=== PATIENT | male | born 1960 | race Two or more races ===

== ENCOUNTER → 2019-11-22 13:14 | Outpatient (BNVA) | payer OTHER, SELFPAY | PROVIDERS: Visit Provider Internal Medicine Endocrinology, Diabetes & Metabolism | DX: E11.65 Type 2 diabetes mellitus with hyperglycemia (principal); E11.22 Type 2 diabetes mellitus with diabetic chronic kidney disease; I12.9 Hypertensive chronic kidney disease with stage 1 through stage 4 chronic kidney disease, or unspecified chronic kidney disease; N18.30 Chronic kidney disease, stage 3 unspecified; E11.40 Type 2 diabetes mellitus with diabetic neuropathy, unspecified; Z96.41 Presence of insulin pump (external) (internal); E04.2 Nontoxic multinodular goiter; E83.52 Hypercalcemia; E78.5 Hyperlipidemia, unspecified; E66.9 Obesity, unspecified; Z68.33 Body mass index [BMI] 33.0-33.9, adult | CPT/HCPCS: 82947; 99214 ==

== ENCOUNTER → 2020-03-03 12:33 | Outpatient (BNVA) | payer OTHER, SELFPAY | PROVIDERS: PCP Family Medicine Geriatric Medicine; Referring Provider Family Medicine Geriatric Medicine; Visit Provider Internal Medicine Endocrinology, Diabetes & Metabolism | DX: E11.65 Type 2 diabetes mellitus with hyperglycemia (principal); E11.22 Type 2 diabetes mellitus with diabetic chronic kidney disease; I12.9 Hypertensive chronic kidney disease with stage 1 through stage 4 chronic kidney disease, or unspecified chronic kidney disease; N18.30 Chronic kidney disease, stage 3 unspecified; E04.2 Nontoxic multinodular goiter; E83.52 Hypercalcemia; E78.5 Hyperlipidemia, unspecified; E66.9 Obesity, unspecified | CPT/HCPCS: 82947; 99212 ==

== ENCOUNTER 2020-03-06 09:16 | Outpatient (REF) | payer OTHER, SELFPAY ==
[2020-03-06 10:23] LABS: Alanine Aminotransferase 38 U/L (0-40); Albumin Level 4.4 g/dL (3.5-5.0); Alkaline Phosphatase 54 U/L (39-117); Anion Gap 11 (12-20); Aspartate Amino Transferase 39 U/L (5-37); Bilirubin Total 0.9 mg/dL (0.0-1.0); Blood Urea Nitrogen 13 mg/dL (9-16); Calcium 9.6 mg/dL (8.4-10.2); Carbon Dioxide 27 mmol/L (22-29); Chloride 106 mmol/L (96-108); Cholesterol 132 mg/dL; Estimated Glomerular Filt Rate 47; Glucose Fasting 80 mg/dL (60-99); HDL Cholesterol 36 mg/dL; LDL Cholesterol Calculated 77 mg/dl; Potassium 3.7 mmol/l (3.3-5.1); Sodium 140 mmol/L (135-145); Total Protein 7.6 g/dL (6.5-8.0); Triglycerides 97 mg/dL
[2020-03-06 10:53] LABS: Vitamin B12 346 pg/mL (200-900)
[2020-03-06 11:11] LABS: Creatinine Urine 172.19 mg/dL; Microalbum/Creatinine Ratio Ur 19.1 ug/mg cr
[2020-03-07 11:03] LABS: LDL Cholesterol Direct 85 mg/dL (<100)
[2020-03-09 14:02] LABS: Prot Elec - Albumin 4.4 g/dL (3.8-4.8); Prot Elec - Alpha1 0.3 g/dL (0.2-0.3); Prot Elec - Alpha2 0.5 g/dL (0.5-0.9); Prot Elec - Beta 1 0.5 g/dL (0.4-0.6); Prot Elec - Beta 2 0.5 g/dL (0.2-0.5); Prot Elec - Gamma 1.5 g/dL (0.8-1.7); Prot Elec - Total Protein 7.6 g/dL (6.1-8.1)
[2020-03-10 07:35] LABS: VITAMIN D (1,25 OH) D3 54
[2020-03-10 07:38] LABS: PTHI 39; Vit D (1,25-Dihydroxy) Total 54
[2020-03-10 10:22] LABS: Vitamin D (1,25 OH) D2 <8 pg/mL
[2020-03-10 15:32] LABS: PEU-Protein Creat Ratio Rand 0.082 (0.022-0.128); PEU-Rand. Prot/Creat Ratio 82 mg/g creat (22-128); PEU-Random Ur. Gamma Globulin 0 %; PEU-Random Urine A1 Globulin 0 %; PEU-Random Urine A2 Globulin 0 %; PEU-Random Urine Albumin 100 %; PEU-Random Urine Beta Globulin 0 %; PEU-Random Urine Creatinine 171 mg/dL (20-320); PEU-Random Urine Protein 14 mg/dL (5-25)
== END 2020-03-06 09:17 | disposition home or self-care (01) ==
LOC: HO.LAB 09:16
PROVIDERS: PCP Family Medicine; Visit Provider Internal Medicine Endocrinology, Diabetes & Metabolism
DX: E11.65 Type 2 diabetes mellitus with hyperglycemia (principal); E83.52 Hypercalcemia
CPT/HCPCS: 80053; 80061; 82043; 82570; 82607; 82652; 83519; 83721; 83970; 84155; 84156; 84165; 84166

== ENCOUNTER 2020-04-03 14:51 | Outpatient (REF) | payer OTHER, SELFPAY ==
[2020-04-03 15:53] LABS: Glucose Fasting 115 mg/dL (60-99)
[2020-04-04 07:57] LABS: C Peptide 0.42 ng/mL (0.80-3.85)
[2020-04-07 18:37] LABS: Parathyroid Hormone Related Pr 22 pg/mL (14-27)
[2020-04-07 22:12] LABS: Glutamic acid decarboxylase Ab <5 IU/mL (<5)
[2020-04-08 16:01] LABS: Insulinoma associated 2 aatb <5.4 U/mL (<5.4)
[2020-04-10 01:22] LABS: Islet Cell Antibody Screen NEGATIVE (NEGATIVE)
== END 2020-04-03 14:52 | disposition home or self-care (01) ==
LOC: HO.LAB 14:51
PROVIDERS: Visit Provider Internal Medicine Endocrinology, Diabetes & Metabolism
DX: E83.52 Hypercalcemia (principal); E11.65 Type 2 diabetes mellitus with hyperglycemia
CPT/HCPCS: 36415; 82947; 83519; 84681; 86255; 86341

== ENCOUNTER → 2020-06-04 13:56 | Outpatient (BNVA) | payer OTHER, SELFPAY | PROVIDERS: PCP Family Medicine; Visit Provider Internal Medicine Endocrinology, Diabetes & Metabolism | DX: E11.21 Type 2 diabetes mellitus with diabetic nephropathy (principal); E11.65 Type 2 diabetes mellitus with hyperglycemia; E11.40 Type 2 diabetes mellitus with diabetic neuropathy, unspecified; E11.22 Type 2 diabetes mellitus with diabetic chronic kidney disease; N18.30 Chronic kidney disease, stage 3 unspecified; E83.52 Hypercalcemia; I10 Essential (primary) hypertension; E78.5 Hyperlipidemia, unspecified; E04.2 Nontoxic multinodular goiter; Z79.4 Long term (current) use of insulin; Z79.82 Long term (current) use of aspirin; Z79.899 Other long term (current) drug therapy | CPT/HCPCS: 82947; 99212 ==

== ENCOUNTER → 2020-08-26 11:23 | Outpatient (BNVA) | payer OTHER, SELFPAY | PROVIDERS: Visit Provider Internal Medicine Endocrinology, Diabetes & Metabolism | DX: E11.65 Type 2 diabetes mellitus with hyperglycemia (principal); E11.22 Type 2 diabetes mellitus with diabetic chronic kidney disease; I12.9 Hypertensive chronic kidney disease with stage 1 through stage 4 chronic kidney disease, or unspecified chronic kidney disease; N18.30 Chronic kidney disease, stage 3 unspecified; E04.2 Nontoxic multinodular goiter; E83.52 Hypercalcemia; E78.5 Hyperlipidemia, unspecified; E66.9 Obesity, unspecified; Z79.4 Long term (current) use of insulin | CPT/HCPCS: 82947; 99212 ==

== ENCOUNTER → 2021-01-01 13:34 | Outpatient (BNVA) | payer OTHER, SELFPAY | PROVIDERS: Visit Provider Nurse Practitioner Gerontology | DX: E11.65 Type 2 diabetes mellitus with hyperglycemia (principal); E11.22 Type 2 diabetes mellitus with diabetic chronic kidney disease; I12.9 Hypertensive chronic kidney disease with stage 1 through stage 4 chronic kidney disease, or unspecified chronic kidney disease; N18.30 Chronic kidney disease, stage 3 unspecified; E78.5 Hyperlipidemia, unspecified; Z79.4 Long term (current) use of insulin | CPT/HCPCS: 82947; 83036; 99212 ==

== ENCOUNTER → 2021-01-29 13:44 | Outpatient (BNVA) | payer OTHER, SELFPAY | PROVIDERS: Visit Provider Registered Nurse Diabetes Educator | DX: E11.65 Type 2 diabetes mellitus with hyperglycemia (principal) | CPT/HCPCS: 99211 ==

== ENCOUNTER 2022-02-09 14:14 | Outpatient (REF) | payer OTHER, SELFPAY ==
[2022-02-09 16:45] LABS: Cholesterol 171 mg/dL; HDL Cholesterol 38 mg/dL; LDL Cholesterol Calculated 111 mg/dl; Triglycerides 111 mg/dL
[2022-02-09 16:50] LABS: Microalbum/Creatinine Ratio Ur 297.9 ug/mg cr
== END 2022-02-09 14:15 | disposition home or self-care (01) ==
LOC: HO.LAB 14:14
PROVIDERS: PCP Nurse Practitioner Family; Visit Provider Internal Medicine Endocrinology, Diabetes & Metabolism
DX: E11.65 Type 2 diabetes mellitus with hyperglycemia (principal)
CPT/HCPCS: 36415; 80061; 82043

== ENCOUNTER → 2022-02-10 13:55 | Outpatient (BNVA) | payer OTHER, SELFPAY | PROVIDERS: PCP Nurse Practitioner Family; Visit Provider Internal Medicine Endocrinology, Diabetes & Metabolism | DX: E11.65 Type 2 diabetes mellitus with hyperglycemia (principal); Z96.41 Presence of insulin pump (external) (internal); Z79.4 Long term (current) use of insulin | CPT/HCPCS: 82947; 83036; 99212 ==

== ENCOUNTER → 2022-02-11 14:34 | Outpatient (BNVA) | payer OTHER, SELFPAY | PROVIDERS: PCP Nurse Practitioner Family; Visit Provider Registered Nurse Diabetes Educator | DX: Z46.81 Encounter for fitting and adjustment of insulin pump (principal); E11.65 Type 2 diabetes mellitus with hyperglycemia; Z79.4 Long term (current) use of insulin | CPT/HCPCS: 99211 ==

== ENCOUNTER 2022-05-12 11:29 | Outpatient (REF) | payer OTHER, SELFPAY ==
[2022-05-12 13:59] LABS: Anion Gap 14 (12-20); Blood Urea Nitrogen 14 mg/dL (9-16); Carbon Dioxide 27 mmol/L (22-29); Chloride 104 mmol/L (96-108); Estimated Glomerular Filt Rate 44; Glucose Random 114 mg/dL (60-115); Potassium 4.2 mmol/L (3.3-5.1); Sodium 141 mmol/L (135-145)
== END 2022-05-12 11:30 | disposition home or self-care (01) ==
LOC: HO.LAB 11:29
PROVIDERS: Visit Provider Internal Medicine Endocrinology, Diabetes & Metabolism
DX: E11.65 Type 2 diabetes mellitus with hyperglycemia (principal)
CPT/HCPCS: 36415; 80048

== ENCOUNTER → 2022-07-08 15:28 | Outpatient (BNVA) | payer OTHER, SELFPAY | PROVIDERS: PCP Nurse Practitioner Family; Visit Provider Internal Medicine Endocrinology, Diabetes & Metabolism | DX: E11.65 Type 2 diabetes mellitus with hyperglycemia (principal); E11.22 Type 2 diabetes mellitus with diabetic chronic kidney disease; N18.30 Chronic kidney disease, stage 3 unspecified; Z96.41 Presence of insulin pump (external) (internal) | CPT/HCPCS: 82947; 83036; 99212 ==

== ENCOUNTER 2023-03-14 06:05 | Outpatient (REF) | payer OTHER, SELFPAY ==
[2023-03-14 07:51] LABS: Cholesterol 169 mg/dL (<200); HDL Cholesterol 39 mg/dL (>40); LDL Cholesterol Calculated 104 mg/dL (<100); Triglycerides 132 mg/dL (<150)
[2023-03-14 09:11] LABS: Creatinine Urine 182.83 mg/dL; Microalbum/Creatinine Ratio Ur 8.2 ug/mg cr (<30)
== END 2023-03-14 06:06 | disposition home or self-care (01) ==
LOC: HO.LAB 06:05
PROVIDERS: PCP Family Medicine; Visit Provider Internal Medicine Endocrinology, Diabetes & Metabolism
DX: E11.65 Type 2 diabetes mellitus with hyperglycemia (principal); E11.22 Type 2 diabetes mellitus with diabetic chronic kidney disease; I12.9 Hypertensive chronic kidney disease with stage 1 through stage 4 chronic kidney disease, or unspecified chronic kidney disease; N18.9 Chronic kidney disease, unspecified; E78.5 Hyperlipidemia, unspecified
CPT/HCPCS: 36415; 80061; 82043; 82570; 82947; 83036; 99212

== ENCOUNTER 2023-03-14 10:32 | Outpatient (AMB) | payer OTHER, SELFPAY ==
--- NOTE | 2023-03-14 10:32 | MHC.OFFVIS ---
Intake Vital Signs 03/14/23 10:37 Height 5 ft 11 in Weight 221 lb 5.506 oz BMI 30.9 BP 114/76 Blood Pressure Location Rt brachial Position Sitting Pulse 74 Pulse Source Pulse Oximeter Intake Visit Reasons: [id number] Intake Note: Patient present today to follow up on Type 2 Diabetes Mellitus. Patient receives DME supplies through: Pharmacy Last Diabetic Eye exam: approx 1 month ago Last Podiatry Visit: Does not see a Artist Suspect Random Glucose: 144 mg/dl HgA1C: 6.2% Wire Drawing Setter Required: No Accompanied by: Self / Same As Patient Allergies No Known Allergies Allergy (Verified 03/14/23 10:40) HPI HPI Comments History of Present Illness Details Patient is 62-year-old male with DM type 2 diagnosed around 2009 who presents for management of diabetes. Past medical history: DM2, CKD, Dyslipidemia, HTN, NTMG Micro and macrovascular complications: + nephropathy , CKD 3, + neuropathy, Diabetes medications: Mounjaro 5 mg weekly, Admelog via omnipod pump Pump settings His total daily insulin use is 39.5 units in 24 hour 79% basal 21% bolus Total daily carbohydrate intake is 135g. Total entries per day 1.8 Pump settings Basal rate 12A -8A =2 units/hr 8A- 12A =1.5 units/hr Carb ratio 1:1.5 Sensitivity 20 mg/dL Target 110 mg/dL Insulin active time 04:00 hours Blood glucose monitoring: In the past 2 weeks average blood glucose 166, CGM [id number]% . <1% very low, less than 0% low from 54-69. 60% within target range of 70-180. 38% high from 180-250. 2% very high over 250. Median above goal throughout most of the day. Tends to be slightly higher overnight. 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: Artist Suspect: denies Dental exam: goes twice year Ophthalmology evaluation: 1 mo ago , reports retinopathy in right eye currently had received anti VEGF therapy Laboratory Tests 03/06/20 03/06/20 03/06/20 09:36 09:36 09:36 Creatinine 1.52 H Estimated GFR 47 Fasting Glucose Hgb A1c (Clinic) C-Peptide LDL Cholesterol Di rect 85 LDL Cholesterol, C alc 77 Vitamin B12 346 Microalb/Creat Rat io HIEU Antibody 03/06/20 04/03/20 04/03/20 Unknown 15:23 15:23 Creatinine Estimated GFR Fasting Glucose 115 H D Hgb A1c (Clinic) C-Peptide 0.42 L LDL Cholesterol Di rect LDL Cholesterol, C alc Vitamin B12 Microalb/Creat Rat io 19.1 HIEU Antibody <5 08/26/20 11:40 Creatinine Estimated GFR Fasting Glucose Hgb A1c (Clinic) 7.1 H C-Peptide LDL Cholesterol Di rect LDL Cholesterol, C alc Vitamin B12 Microalb/Creat Rat io HIEU Antibody [facility] Medical History CKD (chronic kidney disease) stage 3, GFR 30-59 ml/min Diabetes type 2, uncontrolled Dyslipidemia Hypercalcemia 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 Absence of acromegalic features. Neck exam reveals nl size thyroid about 15 gms. No thyroid nodules palpable. No carotid bruits present. Lungs CTA. Heart S1 S2, Reg R/R. No M/R/ G. Skin exam reveals absence of vitiligo or acanthosis nigricans. Abdominal exam reveals Soft NT/ND with NA BS. No organomegaly present. Neck Other: . Extrem Other: Visual exam of foot performed. No ulcerations or open lesions. No onchomycosis, no callouses.Pulses 2 + distally Sensation intact to monofilament exam. Vibratory sensation sensed is decreased patient referred to the software educator with 128 Hz tuning fork Results AMB Hemoglobin A1c AMB Hemoglobin A1c 6.2 % Last Edit by NITESH Baron on 03/14/23 11:01 Results Reviewed Results Reviewed: Laboratory Last Values Glucose (Clinic) 144 mg/dL (60-115) H 03/14/23 10:46 Assessment & Plan Assessment & Plan (1) Diabetes type 2, uncontrolled: Code(s): E11.65 - Type 2 diabetes mellitus with hyperglycemia Plan: 61-year-old black male with history of type 2 diabetes being treated with Trulicity and Omnipod dash insulin pump with excellent improved glycemic control and known microvascular complications namely CKD stage 3B. Plan is increase the Mounjaro to 7.5 mg Q weekly. Told patient to be aware of any hypoglycemia and to report so we can adjust his pump. He will also follow up with the software educator Orders: Orders AMB Hemoglobin A1c Today E11.65 - Type 2 diabetes mellitus with hyperglycemia Medications: New tirzepatide (Mounjaro) 7.5 mg (0.5 mL) subcut QWEEK 2 mL 5RF Discontinued tirzepatide (Mounjaro) Discontinued Reason: Doctor's Order 5 mg (0.5 mL) subcut QWEEK 2 mL 5RF Coding Level of Care Code Est Pt Level 4 (14211) Diagnoses Diabetes type 2, uncontrolled E11.65
[2023-03-14 10:37] VITALS: BP 114/76; PULSE 74; BMI 30.9
[2023-03-14 10:51] LABS: Glucose, Whole Blood 144 mg/dL (60-115)
== END 2023-03-14 11:17 | disposition home or self-care (01) ==
PROVIDERS: PCP Nurse Practitioner Family; Visit Provider Internal Medicine Endocrinology, Diabetes & Metabolism
DX: E11.65 Type 2 diabetes mellitus with hyperglycemia (principal)
CPT/HCPCS: 99214

== ENCOUNTER 2023-03-15 11:09 | Outpatient (AMB) | payer OTHER, SELFPAY ==
--- NOTE | 2023-03-15 11:49 | MHC.AMDMED ---
Intake Intake Visit Reasons: Type 2 DM/ CONFIRMED Accompanied by: Self / Same As Patient Allergies No Known Allergies Allergy (Verified 03/14/23 10:40) HPI Comprehensive Diabetes Asmnt Most Recent Diabetes Results: Microalb/Creat Ratio 8.2 ug/mg cr (<30) 03/14/23 Cholesterol 169 mg/dL (<200) 03/14/23 HDL Cholesterol 39 mg/dL (>40) L 03/14/23 Triglycerides 132 mg/dL (<150) 03/14/23 Creatinine 1.60 mg/dL (0.5-1.4) H 05/12/22 Blood Urea Nitrogen 14 mg/dL (9-16) 05/12/22 Sodium 141 mmol/L (135-145) 05/12/22 Potassium 4.2 mmol/L (3.3-5.1) 05/12/22 Chloride 104 mmol/L (96-108) 05/12/22 Carbon Dioxide 27 mmol/L (22-29) 05/12/22 Calcium 10.0 mg/dL (8.4-10.2) 05/12/22 AST 39 U/L (5-37) H 03/06/20 ALT 38 U/L (0-40) 03/06/20 Total Protein 7.6 g/dL (6.5-8.0) 03/06/20 Albumin 4.4 g/dL (3.5-5.0) 03/06/20 [facility] Medical History CKD (chronic kidney disease) stage 3, GFR 30-59 ml/min Diabetes type 2, uncontrolled Dyslipidemia Hypercalcemia Hypertension 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 Non-toxic multinodular goiter Obesity (BMI 30-39.9) Surgical History History of appendectomy Hx of colonoscopy History of reversal of ileostomy Family History Father Diabetes Hypertension Mother Diabetes Hypertension Social History Household Members: Spouse Household Members Other:: Alcohol intake: never Patient Tobacco Use Status: Never used Tobacco Assessment & Plan Assessment & Plan (1) Diabetes type 2, uncontrolled: Code(s): E11.65 - Type 2 diabetes mellitus with hyperglycemia Plan: Patient presents for pump training for Omnipod 5, with Dexcom G6 The following topics were reviewed today: Patient received new PDM and programmed settings independently For his insulin to carb ratio he entered 1:5, which prompted insulin pump to continually give him warning about bolus over max bolus limits Reviewed patient's previous pump download June 2022, discuss discrepancy between insulin to carb ratio from old insulin pump download to current insulin to carb ratio Instructed patient on how to change insulin to carb ratio back to previous setting Setting verified by CDCES, see changes made to today's pump set Basal rate(s) (units/hour) : 12 AM to 12 AM? 2 units / hr Bolus setting Insulin Carbohydrate Ratio (s) 12 AM to 12 AM? 1: 1.5 New 12 AM? to 7 PM 1:6 7 PM to 12 AM 1:5 Correction Factor / Sensitivity Factor 12 AM? to 12 AM 1:20 Active Insulin Time:? 4 hours Target(s): 12 AM? to 12 AM 110 Threshhold for correction 110mg/dL Patient Instructions: Instructed patient to contact certified breastfeeding educator as needed Coding Level of Care Code Est Pt Level 1 (79625) Diagnoses Diabetes type 2, uncontrolled E11.65
== END 2023-03-15 11:53 | disposition home or self-care (01) ==
PROVIDERS: PCP Family Medicine; Visit Provider Registered Nurse Diabetes Educator
DX: E11.65 Type 2 diabetes mellitus with hyperglycemia (principal)

== ENCOUNTER → 2023-03-15 11:09 | Outpatient (BNVA) | payer OTHER, SELFPAY | PROVIDERS: PCP Family Medicine; Visit Provider Registered Nurse Diabetes Educator | DX: Z46.81 Encounter for fitting and adjustment of insulin pump (principal); E11.65 Type 2 diabetes mellitus with hyperglycemia | CPT/HCPCS: 99211 ==

== ENCOUNTER 2023-06-12 06:04 | Outpatient (REF) | payer OTHER, SELFPAY ==
[2023-06-12 07:55] LABS: Anion Gap 10 (12-20); Blood Urea Nitrogen 17 mg/dL (9-16); Calcium 9.6 mg/dL (8.4-10.2); Carbon Dioxide 27 mmol/L (22-29); Chloride 108 mmol/L (96-108); Estimated Glomerular Filt Rate 40; Glucose Random 163 mg/dL (60-115); Potassium 3.4 mmol/L (3.3-5.1); Sodium 142 mmol/L (135-145)
== END 2023-06-12 06:05 | disposition home or self-care (01) ==
LOC: HO.LAB 06:04
PROVIDERS: Visit Provider Internal Medicine Endocrinology, Diabetes & Metabolism
DX: E11.65 Type 2 diabetes mellitus with hyperglycemia (principal)
CPT/HCPCS: 36415; 80048

== ENCOUNTER 2023-06-13 11:04 | Outpatient (AMB) | payer OTHER, SELFPAY ==
[2023-06-13 11:13] VITALS: BP 130/86; PULSE 93; BMI 30.7
--- NOTE | 2023-06-13 11:13 | MHC.OFFVIS ---
Vital Signs 06/13/23 11:13 Height 5 ft 11 in Weight 220 lb BMI 30.7 BP 130/86 Blood Pressure Location Lt brachial Position Sitting Pulse 93 Pulse Source Pulse Oximeter Intake Visit Reasons: [id number] Intake Note: Patient present today to follow up on Type 2 Diabetes Mellitus. Patient receives DME supplies through: Pharmacy Last Diabetic Eye exam: 02/2023 Last Podiatry Visit: Doesn't have one Random Glucose: 150 mg/dl HgA1C: 6.0% Compounder Required: No Accompanied by: Self / Same As Patient Allergies No Known Allergies Allergy (Verified 06/13/23 11:19) HPI Comments Details: Patient is 62-year-old male with DM type 2 diagnosed around 2009 who presents for management of diabetes. Past medical history: DM2, CKD, Dyslipidemia, HTN, NTMG Micro and macrovascular complications: + nephropathy , CKD 3, + neuropathy, Diabetes medications: Mounjaro 7.5 mg weekly, Admelog via omnipod pump Pump settings His total daily insulin use is 25.8 units in 24 hour 68% basal 32% bolus Pump settings Basal rate(s) (units/hour) : 12 AM to 8 AM? 2 units / hr 8A to 12 A 1.5 units/hr Bolus setting Insulin Carbohydrate Ratio (s) 12 AM? to 5 PM 1:6 5 PM to 12 AM 1:5 Correction Factor / Sensitivity Factor 12 AM? to 12 AM 1:20 Active Insulin Time:? 4 hours Target(s): 12 AM? to 12 AM 110 Threshhold for correction 110mg/dL Blood glucose monitoring: In the past 2 weeks average blood glucose 161, CGM active 86% . <1% very low, less than 0% low from 54-69. 60% within target range of 70-180. 39% high from 180-250. 1% very high over 250. Median above goal throughout most of the day. 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: C T Tech: lalito Dental exam: goes twice year Ophthalmology evaluation: 02/2023 , reports retinopathy in right eye currently had received anti VEGF therapy Laboratory Tests 03/06/20 03/06/20 03/06/20 09:36 09:36 09:36 Creatinine 1.52 H Estimated GFR 47 Fasting Glucose Hgb A1c (Clinic) C-Peptide LDL Cholesterol Direct 85 LDL Cholesterol, Calc 77 Vitamin B12 346 Microalb/Creat Ratio HIEU Antibody 03/06/20 04/03/20 04/03/20 Unknown 15:23 15:23 Creatinine Estimated GFR Fasting Glucose 115 H D Hgb A1c (Clinic) C-Peptide 0.42 L LDL Cholesterol Direct LDL Cholesterol, Calc Vitamin B12 Microalb/Creat Ratio 19.1 HIEU Antibody <5 08/26/20 11:40 Creatinine Estimated GFR Fasting Glucose Hgb A1c (Clinic) 7.1 H C-Peptide LDL Cholesterol Direct LDL Cholesterol, Calc Vitamin B12 Microalb/Creat Ratio HIEU Antibody [facility] Medical History CKD (chronic kidney disease) stage 3, GFR 30-59 ml/min Diabetes type 2, uncontrolled Dyslipidemia Hypercalcemia 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 Absence of acromegalic features. Neck exam reveals nl size thyroid about 15 gms. No thyroid nodules palpable. No carotid bruits present. Lungs CTA. Heart S1 S2, Reg R/R. No M/R/ G. Skin exam reveals absence of vitiligo or acanthosis nigricans. Abdominal exam reveals Soft NT/ND with NA BS. No organomegaly present. Neck Other: . Extrem Other: Visual exam of foot performed. No ulcerations or open lesions. No onchomycosis, no callouses.Pulses 2 + distally Sensation intact to monofilament exam. Vibratory sensation sensed is decreased patient referred to the diabetes educator with 128 Hz tuning fork Results AMB Hemoglobin A1c AMB Hemoglobin A1c 6.0 % Last Edit by NITESH Castro on 06/13/23 11:45 Results Reviewed Results Reviewed: Laboratory Last Values Glucose (Clinic) 150 mg/dL (60-115) H 06/13/23 11:25 Assessment & Plan Assessment & Plan (1) Diabetes type 2, uncontrolled: Code(s): E11.65 - Type 2 diabetes mellitus with hyperglycemia Category: Medical Plan: 63-year-old black male with history of type 2 diabetes being treated with Mounjaro and Omnipod 5insulin pump with excellent improved excellent glycemic control and known microvascular complications namely CKD stage 3B. Plan is continue the current regimen He will also follow up with the diabetes educator. Coding Level of Care Code Est Pt Level 4 (34856) Diagnoses Diabetes type 2, uncontrolled E11.65
[2023-06-13 11:30] LABS: Glucose, Whole Blood 150 mg/dL (60-115)
== END 2023-06-13 11:47 | disposition home or self-care (01) ==
PROVIDERS: PCP Family Medicine; Visit Provider Internal Medicine Endocrinology, Diabetes & Metabolism
DX: Z13.9 Encounter for screening, unspecified (principal); E11.65 Type 2 diabetes mellitus with hyperglycemia
CPT/HCPCS: 99214

== ENCOUNTER → 2023-06-13 11:04 | Outpatient (BNVA) | payer OTHER, SELFPAY | PROVIDERS: PCP Family Medicine; Visit Provider Internal Medicine Endocrinology, Diabetes & Metabolism | DX: E11.65 Type 2 diabetes mellitus with hyperglycemia (principal); Z79.4 Long term (current) use of insulin | CPT/HCPCS: 82947; 83036; 99212 ==

== ENCOUNTER 2023-10-10 13:42 | Outpatient (AMB) | payer OTHER, SELFPAY ==
--- NOTE | 2023-10-10 13:46 | A.OFFVIS_ITS ---
Vital Signs 10/10/23 13:56 Height 5 ft 11 in Weight 218 lb 4.122 oz BMI 30.4 BP 120/84 Blood Pressure Location Rt brachial Position Sitting Pulse 85 Pulse Source Pulse Oximeter Intake Visit Reasons: T2DM/CONFIRMED Intake Note: Patient presents today to re-establish treatment for Type 2 Diabetes Mellitus: Last Diabetic eye exam was on: 02/2023 Last Podiatry exam was on: Does not see a Coating Machine Feeder Most recent HbA1c: 6.1%, 10/10/2023 Random Glucose- 119mg/dL, Today Work Counselor Required: No Accompanied by: Self / Same As Patient Allergies No Known Allergies Allergy (Verified 10/10/23 13:47) HPI Comments Details: 63 year old male with type 2 diabetes presents for management of diabetes. He was last seen by Dr. Victor 06/06. A1C in the office today is 6.1% Past medical history: DM2, CKD, Dyslipidemia, HTN, NTMG Micro and macrovascular complications: + nephropathy , CKD 3, + neuropathy, Diabetes medications: Mounjaro 7.5 mg weekly, Admelog via omnipod pump for approx 5 years. Basal rate(s) (units/hour) : 12 AM to 8 AM? 2 units / hr 8A to 12 A 1.5 units/hr Bolus setting Insulin Carbohydrate Ratio (s) 12 AM? to 5 PM 1:6 5 PM to 12 AM 1:5 Correction Factor / Sensitivity Factor 12 AM? to 12 AM 1:20 Active Insulin Time:? 4 hours Symptoms reported: + numbness, tingling, cramping in lower extremities on gabapentin Hypoglycemia: rare Hyperglycemia: denies urinary frequency, denies nocturia, denies polydypsia Sees nephrology regularly on pedro-i Taken off statin years ago liver related, on fenofibrate and zetia Biology Adjunct Instructor - CDE education: Has been seen in the past Coating Machine Feeder: denies Dental exam: goes twice year Ophthalmology evaluation: 04/2023, reports retinopathy in right eye currently had received anti VEGF therapy, last exam no changes Regular exercise. 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, 1 2 grandchildren [facility] Medical History Obesity (BMI 30-39.9) Hypertension Dyslipidemia Hypercalcemia Non-toxic multinodular goiter rn long term care (current) use of insulin CKD (chronic kidney disease) stage 3, GFR 30-59 ml/min Diabetes type 2, uncontrolled Surgical History History of appendectomy Hx of colonoscopy History of reversal of ileostomy Family History Father Diabetes Hypertension Mother Diabetes Hypertension Social History Household Members: Spouse Household Members Other:: Alcohol intake: never Patient Tobacco Use Status: Never used Tobacco Physical Exam Vital Signs: Last Vital Signs Pulse 85 10/10/23 13:56 BP 120/84 10/10/23 13:56 BMI result Body Mass Index 30.4 Const Other: Absence of Cushingoid features. Absence of acromegalic features. Neck exam reveals nl size thyroid about 15 gms. No thyroid nodules palpable. Heart S1 S2, Reg R/R. No M/R G. Skin exam reveals absence of vitiligo or acanthosis nigricans. Extrem Other: Visual exam of foot performed. No ulcerations or open lesions. No onchomycosis, no callouses. No inter digit fissuring or maceration. Sensation intact to monofilament exam. Vibratory sensation is normal with 128 Hz tuning fork. Results AMB Hemoglobin A1c AMB Hemoglobin A1c 6.1 % Last Edit by NITESH Smiley on 10/10/23 14:20 Results Reviewed Results Reviewed: Laboratory Last Values Glucose (Clinic) 119 mg/dL (60-115) H 10/10/23 14:05 Laboratory Tests 03/06/20 02/09/22 03/14/23 Unknown 14:40 06:25 Potassium Creatinine Estimated GFR Hgb A1c (Clinic) Calcium LDL Cholesterol, Calc 104 H HDL Cholesterol 39 L Urine Creatinine 182.83 Urine Microalbumin 33.0 698.0 15.0 Microalb/Creat Ratio 19.1 297.9 8.2 03/14/23 06/12/23 06/13/23 11:00 06:17 11:44 Potassium 3.4 Creatinine 1.72 H Estimated GFR 40 Hgb A1c (Clinic) 6.2 H 6.0 Calcium 9.6 LDL Cholesterol, Calc HDL Cholesterol Urine Creatinine Urine Microalbumin Microalb/Creat Ratio Assessment & Plan Assessment & Plan (1) Diabetes type 2, uncontrolled: Code(s): E11.65 - Type 2 diabetes mellitus with hyperglycemia Category: Medical Plan: Type 2 diabetic with nephropathy, neuropathy and retinopathy on Omnipod pump along with Manish presents today for follow-up. A1c 6.1% without lows. Bulk of today's visit was spent on patient education and pump survival skills. JONN was ordered to rule out peripheral vascular disease per where can Diabetes Association recommendations. Backup insulin plan 20 units of Lantus 3-4 units of short-acting with meals. Patient requests backup glucometer today. Orders: Orders AMB Hemoglobin A1c Today E11.65 - Type 2 diabetes mellitus with hyperglycemia US JONN complete Today E11.65 - Type 2 diabetes mellitus with hyperglycemia Medications: New lancets (FreeStyle Lancets) 4 times a day prn sensor failure or to confirm glucose 100 ea 1RF blood sugar diagnostic (FreeStyle Lite Strips) As directed prn sensor failure, confirm glucose 100 ea 1RF glucagon 3 mg/actuation (Baqsimi) 3 mg intranasal .prn 30 days PRN 2 ea 2RF Unresponsive hypoglycemia MDD 6 mg E11.65 - Type 2 diabetes mellitus with hyperglycemia acetone (urine) test (Ketone Urine Test strips) As directed glucose over 250, nausea, vomiting, illness 25 ea 1RF E11.65 - Type 2 diabetes mellitus with hyperglycemia insulin syringe-needle U-100 (BD Insulin Syringe Ultra-Fine) As directed up to quid for pump failure or glucose correction 100 ea 1RF E11.65 - Type 2 diabetes mellitus with hyperglycemia insulin glargine (Lantus U-100 Insulin) 20 units (0.2 mL) subcut DAILY 30 days PRN 10 mL 1RF Pump failure MDD 20 units E11.65 - Type 2 diabetes mellitus with hyperglycemia blood-glucose meter (FreeStyle [place] Lite kit) As directed 1 ea 1RF Changed From lancets (FreeStyle Lancets) 4 times a day 200 ea 6RF E11.65 - Type 2 diabetes mellitus with hyperglycemia To lancets (FreeStyle Lancets) 4 times a day prn sensor failure or to confirm glucose 100 ea 1RF E11.65 - Type 2 diabetes mellitus with hyperglycemia Refilled metoprolol succinate ER 100 mg PO DAILY 30 days 30 tabs 5RF I10 - Essential (primary) hypertension lisinopril 40 mg PO DAILY 30 days 30 tabs 5RF I10 - Essential (primary) hypertension Discontinued blood sugar diagnostic (FreeStyle Lite Strips) Discontinued Reason: Duplicate 4 times a day 200 ea 6RF E11.65 - Type 2 diabetes mellitus with hyperglycemia pravastatin Discontinued Reason: No Longer Medically Relevant 10 mg PO DAILY 90 days 90 tabs 1RF E78.5 - Hyperlipidemia, unspecified insulin lispro Discontinued Reason: Duplicate up to 100 units via pump subcut daily; no substitions 40 mL 6RF Patient Instructions: The patient was counseled to always carry a source of sugar and on the rule of 15's: Take 3 glucose tablets and repeat again in 15 minutes if blood sugar is not in normal range. Continue to repeat every 15 minutes until blood sugar is normal. Troubleshooting after starting new pod or inserting new insulin set: Occlusion, adhesive tape sensitivity, redness Check BG 2 hours after site change Safety information: Importance of a backup plan, for manual injections, proper prescriptions and emergency supplies ketone strips, and rules for testing for ketones Symptoms of DKA were reviewed: early: frequent urination, dry mouth, fatigue, feeling ill, severe symptoms: ketones in the urine, abdominal pain, nausea, vomiting and weakness. It is important to hydrate with sugar free liquids every 30 minutes and bring the sugars down to normal levels. The patient was counseled to achieve a target A1C of 7% (154 avg). Fasting blood sugars should be 90-130 in the morning and less than 180 two hours after meals. Reviewed the relationship between poor diabetic control and the developement of complications Coding Level of Care Code Est Pt Level 5 (39891) Complex EM visit Add On G2211 Diagnoses Diabetes type 2, uncontrolled E11.65 Time Spent (min) 60 Comment reviewing labs/provider notes, glucose sensor/pump reports, face to face, chart doc
[2023-10-10 13:56] VITALS: BP 120/84; PULSE 85; BMI 30.4
[2023-10-10 14:09] LABS: Glucose, Whole Blood 119 mg/dL (60-115)
== END 2023-10-10 14:59 | disposition home or self-care (01) ==
PROVIDERS: PCP Family Medicine; Visit Provider Nurse Practitioner Adult Health
DX: E11.65 Type 2 diabetes mellitus with hyperglycemia (principal)
CPT/HCPCS: 99215; 99417; G2211

== ENCOUNTER → 2023-10-10 13:42 | Outpatient (BNVA) | payer OTHER, SELFPAY | PROVIDERS: PCP Family Medicine; Visit Provider Nurse Practitioner Adult Health | DX: E11.65 Type 2 diabetes mellitus with hyperglycemia (principal); Z96.41 Presence of insulin pump (external) (internal); Z79.4 Long term (current) use of insulin | CPT/HCPCS: 82947; 83036; 99212 ==

== ENCOUNTER 2023-11-21 13:39 | Outpatient (REF) | payer OTHER, SELFPAY ==
--- NOTE | ~2023-11-21 | US_ITS ---
EXAMINATION: Noninvasive assessment of the bilateral lower extremities with ANKLE BRACHIAL INDICES (ABIs). CLINICAL INFORMATION: Type 2 diabetes mellitus with hyperglycemia TECHNIQUE: Ankle pulse volume recordings, ankle pressure measurements and ankle brachial indices were obtained of the lower extremity arterial system bilaterally. The study was performed only at rest. COMPARISON: None FINDINGS: BRACHIAL PRESSURES: Right: 132 Left: 135 ANKLE PRESSURES: Right: PT 157, DP 156 Left: PT 151, DP 154 ANKLE-BRACHIAL INDEX: Right: 1.16 Left: 1.14 ANKLE PVR WAVEFORMS: Right: Normal Left: Normal US/US JONN complete IMPRESSION: Normal ankle brachial indices of the bilateral lower extremities. JONN Reference: - >1.4 = calcified vessels - 0.9 - 1.4 = normal - no significant arterial disease - 0.7 - 0.89 = mild peripheral arterial disease - 0.51 - 0.69 = moderate peripheral arterial disease - d 0.50 = severe peripheral arterial disease - < .30 = critical arterial disease Electronically signed by: Mayra Lopez MD 11/21/2023 03:00 PM EDT
== END 2023-11-21 13:40 | disposition home or self-care (01) ==
LOC: HO.US 13:39
PROVIDERS: Visit Provider Nurse Practitioner Adult Health
DX: E11.65 Type 2 diabetes mellitus with hyperglycemia (principal)
CPT/HCPCS: 93923

== ENCOUNTER 2024-02-27 15:00 | Outpatient (AMB) | payer OTHER, SELFPAY ==
--- NOTE | 2024-02-27 14:29 | A.OFFVIS_ITS ---
Vital Signs 02/27/24 15:13 Height 5 ft 11 in Weight 218 lb BMI 30.4 BP 134/82 Blood Pressure Location Rt brachial Position Sitting Pulse 74 Pulse Source Pulse Oximeter Intake Visit Reasons: DM Intake Note: Patient presents today for a follow-up on Type 2 Diabetes Mellitus: Last Diabetic eye exam was on: 02/2023 Last Podiatry exam was on: Does not see a Deposit Clerk Most recent HbA1c: DUE, 02/27/2024 Random Glucose- 118 mg/dL, Today Powder Expert Required: No Accompanied by: Self / Same As Patient Allergies No Known Allergies Allergy (Verified 02/27/24 15:19) Medication List - Last Reconciled 02/29/24 by Poornima Redding NP acetone (urine) test (Ketone Urine Test strips) As directed glucose over 250, nausea, vomiting, illness amlodipine 5 mg PO DAILY 30 days blood sugar diagnostic (FreeStyle Lite Strips) As directed prn tid sensor failure, confirm glucose blood-glucose meter (FreeStyle [place] Lite kit) As directed colchicine 0.6 mg PO DAILY ezetimibe (Zetia) 10 mg PO DAILY 30 days febuxostat 40 mg PO DAILY fenofibrate nanocrystallized 48 mg PO DAILY gabapentin 300 mg PO TID gabapentin 800 mg PO QID glucagon 3 mg/actuation (Baqsimi) 3 mg intranasal .prn PRN 30 days MDD 6 mg insulin glargine (Lantus U-100 Insulin) 20 units (0.2 mL) subcut DAILY PRN 30 days MDD 20 units insulin lispro up to 100 units via insulin pump subcutaneously daily; insulin pump cart,auto,BT-cntr (Omnipod 5 G6 Intro Kit (Gen 5) subcutaneous cartridge with controller) As directed insulin pump cart,automated,BT (Omnipod 5 G6 Pods (Gen 5) subcutaneous cartridge) As directed- Please change pod every 48 hours insulin syringe-needle U-100 (BD Insulin Syringe Ultra-Fine) As directed up to qid for pump failure or glucose correction lancets (FreeStyle Lancets) 4 times a day prn sensor failure or to confirm glucose lancets (FreeStyle Lancets) 4 times a day prn sensor failure or to confirm glucose lisinopril 40 mg PO DAILY 30 days metoprolol succinate ER 100 mg PO DAILY 30 days ropinirole 0.25 mg PO testosterone 40.5 mg topical QAM tirzepatide (Mounjaro) 7.5 mg (0.5 mL) subcut QWEEK ubrogepant 50 mg PO HPI Comments Details: 63 year old male with type 2 diabetes presents for management of diabetes. HgbA1C 5.6% 02/27/24. He was last seen 10/10/23 with an A1C 6.1% Past medical history: DM2, CKD, Dyslipidemia, HTN, NTMG Micro and macrovascular complications: + nephropathy , CKD 3, + neuropathy, Diabetes medications: Mounjaro 7.5 mg weekly, Admelog via omnipod pump for approx 5 years. NO IN office A1C showed low hemoglobin. Patient was sent to lab. Hgb 13.7 Hct 38.4 Patient sent letter with results and advised to discuss with PCP Deneis any active bleeding or dark stools and reports he is uptodate with colonoscopy and no GI symptoms. Basal rate(s) (units/hour) : 12 AM to 8 AM? 2 units / hr 8A to 12 A 1.5 units/hr Bolus setting Insulin Carbohydrate Ratio (s) 12 AM? to 5 PM 1:6 5 PM to 12 AM 1:5 Correction Factor / Sensitivity Factor 12 AM? to 12 AM 1:20 Active Insulin Time:? 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 Regular exercise. 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, 1 2 grandchildren [facility] Medical History Obesity (BMI 30-39.9) Hypertension Dyslipidemia Hypercalcemia Non-toxic multinodular goiter senior living (current) use of insulin CKD (chronic kidney disease) stage 3, GFR 30-59 ml/min Diabetes type 2, uncontrolled Surgical History History of appendectomy Hx of colonoscopy History of reversal of ileostomy Family History Father Diabetes Hypertension Mother Diabetes Hypertension Social History Household Members: Spouse Household Members Other:: Alcohol intake: never Patient Tobacco Use Status: Never used Tobacco Physical Exam Vital Signs: Last Vital Signs Pulse 74 02/27/24 15:13 BP 134/82 02/27/24 15:13 BMI result Body Mass Index 30.4 Const Other: Absence of Cushingoid features. Absence of acromegalic features. Neck exam reveals nl size thyroid about 15 gms. No thyroid nodules palpable. Heart S1 S2, Reg R/R. No M/R G. Skin exam reveals absence of vitiligo or acanthosis nigricans. Visual exam of foot performed. No ulcerations or open lesions. No inter digit maceration or fissuring. No onychomycosis, no callouses. Sensation intact to monofilament exam. Vibratory sensation is normal with 128 Hz tuning fork. gd cap refill +pulses Results Reviewed Results Reviewed: Laboratory Last Values Glucose (Clinic) 118 mg/dL (60-115) H 02/27/24 15:40 Assessment & Plan Assessment & Plan (1) Diabetes type 2, uncontrolled: Code(s): E11.65 - Type 2 diabetes mellitus with hyperglycemia Category: Medical Plan: Type 2 diabetic with nephropathy, neuropathy and retinopathy on Omnipod pump along with Mounjaro presents today for follow-up. Well-controlled. A1c 02/27/2024 5.6% at lab. Office machine indicated low HGB. Patient was sent to lab. He has mild anemia and letter was sent to patient to f/u with PCP for this. He is asymptomatic and reports he is uptodate with colonscopy and denies GI symptoms Will increase Mounjaro per patient request. He was advised to watch for any low sugars which he currently denies and contact us if pup changes needed. He is on automode which should prevent any lows. The patient had an opportunity to ask questions regarding treatment plan. The patient expressed understanding and agreement with the above treatment plan. The patient is aware they should contact our office by phone for worsening glucose readings or for any low blood sugars which may warrant a change in diabetes medication. Compliance is encouraged with medications and any followup testing/consults which may have been ordered. Orders: Orders Hemoglobin A1c 02/27/24 - Type 2 diabetes mellitus with hyperglycemia Microalbumin, Random (w Creat) 02/27/24 - Type 2 diabetes mellitus with hyperglycemia Creatinine Urine 02/27/24 - Type 2 diabetes mellitus with hyperglycemia Comprehensive Met. Panel 02/27/24 - Type 2 diabetes mellitus with hyperglycemia Fructosamine 02/27/24 - Type 2 diabetes mellitus with hyperglycemia Complete Blood Count Auto Diff 02/27/24 - Type 2 diabetes mellitus with hyperglycemia Medications: New tirzepatide (Mounjaro) 10 mg (0.5 mL) subcut QWEEK 28 days 2 mL 11RF Discontinued tirzepatide (Mounjaro) Discontinued Reason: Doctor's Order 7.5 mg (0.5 mL) subcut QWEEK 2 mL 5RF Scribe Plan - Not visible on output: The patient was counseled to always carry a source of sugar and on the rule of 15's: Take 3 glucose tablets and repeat again in 15 minutes if blood sugar is not in normal range. Continue to repeat every 15 minutes until blood sugar is normal. Check your feet daily looking for any signs of infection, ulceration and seek medical attention if this occurs. Break in shoes gradually and do not wear open-toed shoes or walk barefooted. Symptoms of DKA (diabetic ketoacidosis): early: frequent urination, dry mouth, fatigue, feeling ill, severe symptoms: ketones in the urine, abdominal pain, nausea, vomiting and weakness. It is important to hydrate with sugar free liquids every 15-30 minutes and bring the sugars down to normal levels. If you are moderate or severe with ketones or unable to bring glucose to less than 200, go to the emergency room. Troubleshooting after starting new pod or inserting new insulin set: Occlusion, adhesive tape sensitivity, redness Check BG 2 hours after site change Safety information: Importance of a backup plan, for manual injections, proper prescriptions and emergency supplies ketone strips, and rules for testing for ketones Coding Level of Care Code Est Pt Level 5 (69481) Complex EM visit Add On G2211 Diagnoses Diabetes type 2, uncontrolled E11.65 Time Spent (min) 40 Comment TIME SPENT REVIEWING LABS/PROVIDER NOTES, GLUCOSE,SENSOR REPORTS, FACE TO FACE, CHART DOC
[2024-02-27 15:13] VITALS: BP 134/82; PULSE 74; BMI 30.4
[2024-02-27 15:48] LABS: Glucose, Whole Blood 118 mg/dL (60-115)
--- OUTSIDE RECORDS SUMMARY | 2024-02-27 17:32 | XMS_ITS ---
Author Name [facility] [place] [facility] [place] Address [address] [place] [id number] Support Name Relationship Address Phone POPPY PANCHAL Emergency Contact Unknown Unavaila ble Insurance Providers: All historical and current Section Date Range: From patient's date of to the date document was created. This section includes the names of all active insurance providers for the patient. Insurance Provider Type of Coverage Plan Name Start of Policy Coverage End of Policy Coverage Group Number Member ID Insurance Provider's Telephone Number Policy Bravo's Name Patient's Relationship to Policy Bravo MEDICAID MEDICAID [facility] Feb [facility], 2017 MEDICAI D [id number] Cleopatra PANCHAL PATIENT Selected Encounter This section includes the information on record at [place] for the Encounter. Date/Time Encounter Type Encounter Description Reason Pro vider Source Mar 15, 2023 12:00 AM Outpatient Encounter EVENT (HISTORICAL) IHE Encounter Template Text not used by VA Encounter Notes: All associated encounter notes This section contains the clinical notes associated to the Encounter. Date/Time Encounter Note(s) Provider Source Mar 15, 2023 12:00 AM NONVA DIAGNOSTIC S TUDY REPORT: LOCAL TITLE: NON-VA DIAGNOSTICS STANDARD TITLE: NONVA DIAGNOSTIC STUDY REPORT DATE OF NOTE: MAR 15, 2023 ENTRY DATE: MAR 22, 2023@11:44:43 AUTHOR: ROSEMARY ELLER EXP COSIGNER: URGENCY: STATUS: COMPLETED VistA Imaging - Scanned Document SCANNED DOCUMENT SIGNATURE NOT REQUIRED Electronically Filed: 03/22/2023 by: ROSEMARY HODGES [facility] Mar 15, 2023 12:00 AM NONVA DIAGNOSTIC S TUDY REPORT: LOCAL TITLE: NON-VA DIAGNOSTICS STANDARD TITLE: NONVA DIAGNOSTIC STUDY REPORT DATE OF NOTE: MAR 15, 2023 ENTRY DATE: MAR 22, 2023@11:47:52 AUTHOR: ROSEMARY ELLER EXP COSIGNER: URGENCY: STATUS: COMPLETED VistA Imaging - Scanned Document SCANNED DOCUMENT SIGNATURE NOT REQUIRED Electronically Filed: 03/22/2023 by: ROSEMARY HODGES [facility]
--- OUTSIDE RECORDS SUMMARY | 2024-02-27 17:32 | XMS_ITS ---
Author Name [facility] [place] [facility] [place] Address [address] [place] [id number] Support Name Relationship Address Phone POPPY PANCHAL [...] Patient's Relationship to Policy Bravo MEDICAID MEDICAID [facility] Feb 13, 2017 MEDICAI D [id number] Cleopatra PANCHAL PATIENT Selected Encounter This section includes the information on record at [place] for the Encounter. Date/Time Encounter Type Encounter Description Reason Pro vider Source Mar 14, 2023 12:00 PM Outpatient Encounter EVENT (HISTORICAL) IHE Encounter Template Text not used by VA Encounter Notes: All associated encounter notes This section contains the clinical notes associated to the Encounter. Date/Time Encounter Note(s) Provider Source Mar 14, 2023 12:00 PM NONVA NOTE: LOCAL TITLE: NON-VA OUTPATIENT NOTES STANDARD TITLE: NONVA NOTE DATE OF NOTE: MAR 14, 2023@12:00 ENTRY DATE: MAR 20, 2023@10:09:31 AUTHOR: VANESA BAINS EXP COSIGNER: URGENCY: STATUS: COMPLETED VistA Imaging - Scanned Document [facility]-OFFICE NOTES SCANNED DOCUMENT SIGNATURE NOT REQUIRED Electronically Filed: 03/20/2023 by: VANESA BAINS [employer]ES MARKETING VANESA BAINS [facility]
--- OUTSIDE RECORDS SUMMARY | 2024-02-27 17:32 | XMS_ITS ---
Author Name [facility] [place] Organization [facility] [place] Address [address] [place] [id number] Support Name Relationship Address Phone POPPY PANCHAL [...] Patient's Relationship to Policy Bravo MEDICAID MEDICAID [facility] Feb 13, 2017 MEDICAI D [id number] Cleopatra PANCHAL PATIENT Selected Encounter This section includes the information on record at [place] for the Encounter. Date/Time Encounter Type Encounter Description Reason Pro vider Source Nov 23, 2023 12:00 AM Outpatient Encounter EVENT (HISTORICAL) IHE Encounter Template Text not used by VA Encounter Notes: All associated encounter notes This section contains the clinical notes associated to the Encounter. Date/Time Encounter Note(s) Provider Source Nov 23, 2023 12:00 AM NONVA DIAGNOSTIC S TUDY REPORT: LOCAL TITLE: NON-VA DIAGNOSTICS STANDARD TITLE: NONVA DIAGNOSTIC STUDY REPORT DATE OF NOTE: NOV 23, 2023 ENTRY DATE: DEC 18, 2023@07:46:13 AUTHOR: ANA LAURA SAVAGE EXP COSIGNER: URGENCY: STATUS: COMPLETED VistA Imaging - Scanned Document SCANNED DOCUMENT SIGNATURE NOT REQUIRED Electronically Filed: 12/18/2023 by: ANA LAURA [facility] [place] [facility] Nov 23, 2023 12:00 AM NONVA DIAGNOSTIC S TUDY REPORT: LOCAL TITLE: NON-VA DIAGNOSTICS STANDARD TITLE: NONVA DIAGNOSTIC STUDY REPORT DATE OF NOTE: NOV 23, 2023 ENTRY DATE: DEC 18, 2023@07:47:13 AUTHOR: ANA LAURA SAVAGE COSIGNER: URGENCY: STATUS: COMPLETED VistA Imaging - Scanned Document SCANNED DOCUMENT SIGNATURE NOT REQUIRED Electronically Filed: 12/18/2023 by: ANA LAURA WATSON [facility]
== END 2024-02-27 16:23 | disposition home or self-care (01) ==
PROVIDERS: Visit Provider Nurse Practitioner Adult Health
DX: E11.65 Type 2 diabetes mellitus with hyperglycemia (principal)
CPT/HCPCS: 99215; G2211

== ENCOUNTER 2024-02-27 15:00 | Outpatient (REF) | payer OTHER, SELFPAY ==
[2024-02-27 17:01] LABS: Basophils Percent Auto 0.4 % (0-2); Eosinophils Absolute Auto 0.2 X10*3/uL (0.0-0.4); Eosinophils Percent Auto 2.5 % (0-4); Hematocrit 38.4 % (42.0-52.0); Hemoglobin 13.7 g/dl (14.0-18.0); Imm Gran Abs Auto 0.01 X10*3/uL (0.00-0.03); Imm Gran Pct Auto 0.1 % (0.0-0.4); Lymphocytes Absolute Auto 2.3 X10*3/uL (1.2-4.9); Lymphocytes Percent Auto 34.4 % (20-40); MANUAL DIFF FLAG NO; Mean Corpuscular HGB Conc 35.7 g/dl (31.0-36.0); Mean Platelet Volume 10.3 fL (9.4-12.4); Monocytes Absolute Auto 0.5 X10*3/uL (0.1-1.2); Monocytes Percent Auto 7.1 % (2-11); Neutrophils Absolute Auto 3.8 x10*3/uL (2.0-8.3); Neutrophils Percent Auto 55.5 % (45-73); Platelet Count 284 X10*3/uL (160-400); Red Blood Count 4.57 X10*6/uL (4.60-5.80); Red Cell Distribution Width 12.3 % (11.0-16.0); White Blood Count 6.8 X10*3/uL (4.8-10.8)
[2024-02-27 17:16] LABS: Estimated Average Glucose 114 mg/dL; Hemoglobin A1C 132.6046 umol/L; Hemoglobin A1c % 5.6 % (<6.0); Total Hemoglobin (HGBA1C) 3531.0427 umol/L
[2024-02-27 17:22] LABS: Creatinine Urine 267.46 mg/dL; Microalbum/Creatinine Ratio Ur 28.7 ug/mg cr (<30)
[2024-02-27 17:23] LABS: Alanine Aminotransferase 38 U/L (0-40); Albumin Level 4.3 g/dL (3.5-5.0); Alkaline Phosphatase 56 U/L (39-117); Anion Gap 6 (12-20); Aspartate Amino Transferase 36 U/L (5-37); Bilirubin Total 0.9 mg/dL (0.0-1.0); Blood Urea Nitrogen 12 mg/dL (9-16); Carbon Dioxide 29 mmol/L (22-29); Chloride 112 mmol/L (96-108); Estimated Glomerular Filt Rate 49; Glucose Random 100 mg/dL (60-115); Potassium 4.2 mmol/L (3.3-5.1); Sodium 143 mmol/L (135-145); Total Protein 7.6 g/dL (6.5-8.0)
--- OUTSIDE RECORDS SUMMARY | 2024-02-27 18:11 | XMS_ITS | Continuity of Care Document ---
Author Name [facility] Organization [facility] Care Team Providers Care Insurance Coder Name Role Phone [facility] Unavailable Unavailable Problems Combined list of problems from Department of Defense and Veterans Affairs facilities. It does not include entries that were removed or entered in error. Problem Status Onset Date Problem Type Date of Resolution Comments Source Chronic stress disorder Active Condition [facility] Encounters Combined list of: 1) Encounters from Department of Veterans Affairs facilities going back up to thelast 18 months. 2) Encounters from the Department of Defense facilities going back up to 280 months. Location Location Details Encounter Type Encounter Number Reason For Visit Attending Provider ADM Date DC Date Status Disposition Source [facility] Outpatient Encounter [id number] 03/14 [facility] Encounter [id number] 03/15 [facility] Out[facility] Encounter [id number] 11/22 [facility]
[2024-03-04 02:34] LABS: Fructosamine 296 umol/L (205-285)
== END 2024-02-27 15:01 | disposition home or self-care (01) ==
LOC: HO.LAB 15:00
PROVIDERS: PCP Internal Medicine; Visit Provider Nurse Practitioner Adult Health
DX: E11.65 Type 2 diabetes mellitus with hyperglycemia (principal); Z79.85 Long-term (current) use of injectable non-insulin antidiabetic drugs
CPT/HCPCS: 36415; 80053; 82043; 82570; 82947; 82985; 83036; 85025; 99212

== ENCOUNTER 2024-05-30 06:54 | Outpatient (REF) | payer OTHER, SELFPAY ==
--- OUTSIDE RECORDS SUMMARY | 2024-05-30 08:17 | XMS_ITS | Encounter Summary ---
Author Organization [facility], Address [address] [place] [address] Phone Care Team Providers Care Human Resources Officer Name Role Phone Milagros Roper FREIGHT SERVICE INSPECTOR Primary Care Provider [phone] Reason for Visit * Reason Comments Med Refill Encounter Details Date Type Department Care Team (Late st Contact Info) Description 09/19/2020 Refill [facility] [address] [place] [address] Cassius Mark MD [address] [place] [phone] Social History Tobacco Use Types Packs/Day Years [...] on filedocumented in this encounter Care Teams Human Resources Officer Relationship Specialty Start Date End Date Milagros Roper NP [phone] [place], [place] PCP - General Nurse Practitioner 03/21/19 documented as of this encounter
--- OUTSIDE RECORDS SUMMARY | 2024-05-30 08:18 | XMS_ITS | Encounter Summary ---
Author Organization [facility] Address [address] [place] [address] Care Team Providers Care Fulfillment Associate Name Role Phone Milagros Roper NP Primary Care Provider [phone] Encounter Details Date Type Department Care Team (Late st Contact Info) Description 05/23/2024 Lab Requisition [facility] - Main Lab 299 [facility] [place] [phone] Deniz Carbone PA [address] [place] [phone] Testicular hypofunction Social History Tobacco Use Types [...] AM EDT) WBC 9.6 4.8 - 10.8 K/[facility] LAB HEMETOLOGY METHOD 05/23/2024 1:19 PM [facility] RBC 4.80 4.50 - 5.50 M/mcL LAB HEMETOLOGY METHOD 05/23/2024 1:19 PM [facility] Hemoglobin 14.3 13.5 - 17.5 g/dL LAB HEMETOLOGY METHOD 05/23/2024 1:19 PM [facility] Hematocrit 41.6(L) 42.0 - 54.0 % LAB HEMETOLOGY METHOD 05/23/2024 1:19 PM [facility] MCV 86.1 79.0 - 98.0 FL LAB HEMETOLOGY METHOD 05/23/2024 1:19 PM [facility] MCH 29.6 27.0 - 32.0 pcg LAB HEMETOLOGY METHOD 05/23/2024 1:19 PM [facility] MCHC 34.4 32.0 - 37.0 g/dL LAB HEMETOLOGY METHOD 05/23/2024 1:19 PM [facility] RDW 12.6 11.0 - 15.0 % LAB HEMETOLOGY METHOD 05/23/2024 1:19 PM [facility] Platelets 328 130 - 400 K/mcL LAB HEMETOLOGY METHOD 05/23/2024 1:19 PM [facility] MPV 11.7(H) 7.0 - 11.0 FL LAB HEMETOLOGY METHOD 05/23/2024 1:19 PM [facility] NRBC 0.0 <1.0 % LAB HEMETOLOGY METHOD 05/23/2024 1:19 PM [facility] NRBC Absolute 0.00 <0.10 K/mcL LAB HEMETOLOGY METHOD 05/23/2024 1:19 PM [facility] Neutrophils Relative 63.2 % LAB HEMETOLOGY METHOD 05/23/2024 1:19 PM EDT [facility] Lymphocytes Relative 27.0 % LAB HEMETOLOGY METHOD 05/23/2024 1:19 PM [facility] Monocytes Relative 7.2 % LAB HEMETOLOGY METHOD 05/23/2024 1:19 PM [facility] Eosinophils Relative 2.0 % LAB HEMETOLOGY METHOD 05/23/2024 1:19 PM [facility] Basophils Relative 0.3 % LAB HEMETOLOGY METHOD 05/23/2024 1:19 PM [facility] Immature Granulocytes Relative 0.3 % LAB HEMETOLOGY METHOD 05/23/2024 1:19 PM [facility] Neutrophils Absolute 6.05 1.50 - 7.00 K/mcL LAB HEMETOLOGY METHOD 05/23/2024 1:19 PM [facility] Lymphocytes Absolute 2.58 1.00 - 5.00 K/mcL LAB HEMETOLOGY METHOD 05/23/2024 1:19 PM [facility] Monocytes Absolute 0.69 0.20 - 1.00 K/mcL LAB HEMETOLOGY METHOD 05/23/2024 1:19 PM [facility] Eosinophils Absolute 0.19 0.00 - 0.50 K/mcL LAB HEMETOLOGY METHOD 05/23/2024 1:19 PM [facility] Basophils Absolute 0.03 0.00 - 0.20 K/mcL LAB HEMETOLOGY METHOD 05/23/2024 1:19 PM [facility] Immature Granulocytes Absolute 0.03 0.00 - 0.03 K/mcL LAB HEMETOLOGY METHOD 05/23/2024 1:19 PM [facility] Blood Venous blood specimen / Unknown 05/23/2024 8:16 AM EDT 05/23/2024 12:40 PM EDT us Deniz SOTO LAB BLOOD ORDERABLES Final Result [facility] [address] [place] [address], documented in this encounter Visit Diagnoses Diagnosis Testicular hypofunction Other testicular hypofunction documented in this encounter Care Teams Fulfillment Associate Relationship Specialty Start Date End Date Milagros Roper NP [address] [place] [phone] PCP - General Internal Medicine 09/05/18 documented as of this encounter
--- OUTSIDE RECORDS SUMMARY | 2024-05-30 08:18 | XMS_ITS | Encounter Summary ---
Author Organization [facility], Address [address] [facility] [address] [place] [address] Phone Care Team Providers Care Rubber Tubing Backer Name Role Phone Milagros Roper SAMPLE CASE PORTER Primary Care Provider [phone] Reason for Visit * Reason Comments Med Refill Encounter Details Date Type Department Care Team (Late st Contact Info) Description 10/09/2019 Refill [facility] [address] [place] [phone] Cassius Mark MD [address] [place] [phone] Social History Tobacco Use Types Packs/Day Years [...] on filedocumented in this encounter Care Teams Rubber Tubing Backer Relationship Specialty Start Date End Date Milagros Roper NP [phone] [place], [place] PCP - General Nurse Practitioner 03/21/19 documented as of this encounter
--- OUTSIDE RECORDS SUMMARY | 2024-05-30 08:19 | XMS_ITS | Clinical Summary ---
Author Organization [facility] Address [address] [address] Phone Care Team Providers Care Manpower Development Specialist Name Role Phone Milagros Roper NP Primary Care Provider [phone] Encounters Date Type Department Care Team Description 05/23/2024 Lab Requisition [facility] - Main Lab [address] [facility] [address] Deniz Carbone PA Testicular hypofunction [...] LAB HEMETOLOGY METHOD 05/23/2024 1:[address] [facility] RBC 4.80 4.50 - 5.50 M/mcL LAB HEMETOLOGY METHOD 05/23/2024 1:[address] [facility] Hemoglobin 14.3 13.5 - 17.5 g/dL [...] LAB HEMETOLOGY METHOD 05/23/2024 1:[address] [facility] Basophils Relative 0.3 % LAB HEMETOLOGY METHOD 05/23/2024 1:[address] [facility] Immature Granulocytes Relative 0.3 % LAB HEMETOLOGY METHOD 05/23/2024 1:[address] [facility] Neutrophils Absolute 6.05 1.50 - 7.00 K/mcL LAB HEMETOLOGY METHOD 05/23/2024 1:[address] [facility] Lymphocytes Absolute 2.58 1.00 - 5.00 K/mcL LAB HEMETOLOGY METHOD 05/23/2024 1:[address] [facility] Monocytes Absolute 0.69 0.20 - 1.00 K/mcL LAB HEMETOLOGY METHOD 05/23/2024 1:[address] [facility] Eosinophils Absolute 0.19 0.00 - 0.50 K/mcL LAB HEMETOLOGY METHOD 05/23/2024 1:[address] [facility] Basophils Absolute 0.03 0.00 - 0.20 K/mcL LAB HEMETOLOGY METHOD 05/23/2024 1:[address] [facility] Immature Granulocytes Absolute 0.03 0.00 - 0.03 K/mcL LAB HEMETOLOGY METHOD 05/23/2024 1:[address] [facility] Blood Venous blood specimen / Unknown 05/23/2024 8:16 AM EDT 05/23/2024 12:40 PM EDT us Deniz SOTO LAB BLOOD ORDERABLES Final Result [facility] [address] [place] [address], from Last 3 Months Insurance [facility] PLAN Care Teams Manpower Development Specialist Relationship Specialty Start Date End Date Milagros Roper NP [address] [place] [id number] PCP - General Internal Medicine 09/05/18
--- OUTSIDE RECORDS SUMMARY | 2024-05-30 08:19 | XMS_ITS | Encounter Summary ---
Author Organization [facility], Address [address] [place] [address] Phone Care Team Providers Care Doughnut Dough Mixer Name Role Phone Milagros Roper FRAMING INSPECTOR Primary Care Provider [phone] Encounter Details Date Type Department Care Team (Late st Contact Info) Description 10/23/2023 Documentation Only [facility], [address] [place] [address] Leatha [place], [place] [address] [place] [address] Social History Tobacco Use Types [...] on filedocumented in this encounter Care Teams Doughnut Dough Mixer Relationship Specialty Start Date End Date Milagros Roper NP [phone] [place], [place] PCP - General Nurse Practitioner 03/21/19 documented as of this encounter
--- OUTSIDE RECORDS SUMMARY | 2024-05-30 08:19 | XMS_ITS | Clinical Summary ---
Author Organization [facility], Address [address] [place] [address] Phone Care Team Providers Care Neuropsychology Service Director Name Role Phone Milagros Roper NP Primary Care Provider [phone] Allergies No known active allergies Medications ASPIRIN [...] months` Diabetes mellitus 11/18/2014 Overview (03/21/2019): See [facility] Plate Cleaner; pt on insulin pump--Humolog via Omnipod and also on Trulicity 1.5 mg weekly Essential hypertension 11/18/2014 Overview (03/21/2019): [facility] Dr. Lanier 2015: patient monitor Echo 2015 normal Encounters Date Type Department Care Team Description 03/12/2024 Telephone [facility] [address] [place] [address] Leatha Edge [place] from Last 3 Months [...] PM EDT) Hemoglobin A1C 7.7(H) (4.0-5.6) % [facility] Comment: MONITORING: In known diabetic patients, hemoglobin A1c targets should be discussed with health care provider. DIAGNOSTIC USE: ??The [place] Diabetes Association (ADA) and the World Health [...] Supplement 1 Testing performed or reported by [facility], a Service of [facility], [address] [place] [address] Octaviano Mcrae MD, Economic Developer [facility]# [id number] Blood (Blood, Venous) 12/05/2020 1:57 PM EDT 12/05/2020 1:58 PM EDT Cassius Mark MD LAB BLOOD ORDERABLES Final Result [facility] from Last 3 Months or Most Recently Relevant to Health Maintenance Insurance Care Teams Neuropsychology Service Director Relationship Specialty Start Date End Date Milagros Roper NP [phone] [place], [place] PCP - General Nurse Practitioner 03/21/19
--- OUTSIDE RECORDS SUMMARY | 2024-05-30 08:19 | XMS_ITS | Encounter Summary ---
Author Organization [facility], Address [address] [place] [address] Phone Care Team Providers Care Turbine Room Attendant Name Role Phone Milagros Roper NP Primary Care Provider [phone] Encounter Details Date Type Department Care Team (Late st Contact Info) Description 06/02/2021 Documentation Only [facility], [address] [place] [address] Cassius Mark MD [address] [facility] [place] [phone] Social History Tobacco Use Types Packs/Day Years [...] on filedocumented in this encounter Care Teams Turbine Room Attendant Relationship Specialty Start Date End Date Milagros Roper NP [phone] [place], [place] PCP - General Nurse Practitioner 03/21/19 documented as of this encounter
--- OUTSIDE RECORDS SUMMARY | 2024-05-30 08:19 | XMS_ITS | Encounter Summary ---
Author Organization [facility], Address [address] [facility] [address] [place] [address] Phone Care Team Providers Care Aviation Operations Specialist Name Role Phone Milagros Roper WEB PUBLISHER Primary Care Provider [phone] Reason for Visit * Reason Comments Med Refill Encounter Details Date Type Department Care Team (Late st Contact Info) Description 11/03/2020 Refill [facility] [address] [place] [phone] Cassius Mark MD [address] [place] [phone] Social History Tobacco Use Types Packs/Day Years [...] on filedocumented in this encounter Care Teams Aviation Operations Specialist Relationship Specialty Start Date End Date Milagros Roper NP [phone] [place], [place] PCP - General Nurse Practitioner 03/21/19 documented as of this encounter
[2024-05-30 09:19] LABS: Cholesterol 132 mg/dL (<200); HDL Cholesterol 34 mg/dL (>40); LDL Cholesterol Calculated 68 mg/dL (<100); Triglycerides 151 mg/dL (<150)
== END 2024-05-30 06:55 | disposition home or self-care (01) ==
LOC: HO.LAB 06:54
PROVIDERS: PCP Internal Medicine; Visit Provider Nurse Practitioner Adult Health
DX: E11.65 Type 2 diabetes mellitus with hyperglycemia (principal)
CPT/HCPCS: 36415; 80061; 82947; 82985; 83036; 99212

== ENCOUNTER 2024-05-30 06:54 | Outpatient (AMB) | payer OTHER, SELFPAY ==
--- NOTE | 2024-05-30 05:37 | A.OFFVIS_ITS ---
Vital Signs 05/30/24 07:34 Height 5 ft 11 in BP 120/70 Blood Pressure Location Rt brachial Position Sitting Pulse 73 Pulse Source Pulse Oximeter Pulse Oximetry (%) 95 Oxygen Delivery Method Room Air Intake Visit Reasons: T2DM Intake Note: Patient presents today for a follow-up on Type 2 Diabetes Mellitus: Last Diabetic eye exam was on: 03/2024 Last Podiatry exam was on: Does not see a Forepart Reducer Most recent HbA1c: 5.4% Random Glucose- 137mg/dL, Today Accompanied by: Self / Same As Patient Allergies No Known Allergies Allergy (Verified 05/30/24 07:34) Medication List - Last Reconciled 05/30/24 by Poornima Redding NP acetone (urine) test (Ketone Urine Test strips) As directed glucose over 250, nausea, vomiting, illness amlodipine 5 mg PO DAILY 30 days blood sugar diagnostic (FreeStyle Lite Strips) As directed prn tid sensor failure, confirm glucose blood-glucose meter (FreeStyle [place] Lite kit) As directed colchicine 0.6 mg PO DAILY ezetimibe (Zetia) 10 mg PO DAILY 30 days febuxostat 40 mg PO DAILY fenofibrate nanocrystallized 48 mg PO DAILY glucagon 3 mg/actuation (Baqsimi) 3 mg intranasal .prn PRN 30 days MDD 6 mg insulin glargine (Lantus U-100 Insulin) 20 units (0.2 mL) subcut DAILY PRN 30 days MDD 20 units insulin lispro up to 100 units via insulin pump subcutaneously daily; insulin pump cart,auto,BT,G6/7 (Omnipod 5 G6-G7 Pods (Gen 5) subcutaneous cartridge) DIRECTED- PLEASE CHANGE POD EVERY 48 HOURS insulin pump cart,auto,BT-cntr (Omnipod 5 G6 Intro Kit (Gen 5) subcutaneous cartridge with controller) As directed insulin syringe-needle U-100 (BD Insulin Syringe Ultra-Fine) As directed up to qid for pump failure or glucose correction lancets (FreeStyle Lancets) 4 times a day prn sensor failure or to confirm glu cose lancets (FreeStyle Lancets) 4 times a day prn sensor failure or to confirm glucose lisinopril 40 mg PO DAILY 30 days metoprolol succinate ER 100 mg PO DAILY 30 days pregabalin (Lyrica) 150 mg PO DAILY ropinirole 0.25 mg PO testosterone 40.5 mg topical QAM tirzepatide (Mounjaro) 10 mg (0.5 mL) subcut QWEEK 28 days ubrogepant mg PO ubrogepant mg PO ubrogepant mg PO PRN HPI Comments Details: 64 year old male with type 2 diabetes presents for management of diabetes. HgbA1C 05/30/24 5.2%, previous 5.6% 02/27/24. Patient has anemia which may render A1c in accurate. Fructosamine 02/27/24 to 96 which is equivalent to an A1c is 7.3 % Micro and macrovascular complications: + nephropathy , CKD 3, + neuropathy, Diabetes medications: Mounjaro 7.5 mg weekly, Admelog via omnipod pump for approx 5 years. Lantus backup 20 units Hgb 13.7 Hct 38.4 Patient sent letter with results and advised to discuss with PCP Denies any active bleeding or dark stools and reports he is uptodate with colonoscopy within 5 years however PCP ordered one and he no GI symptoms with exception of difficulty swallowing. Has seen GI in the past and has had EGD which he reports as negative. Basal rate(s) (units/hour) : 12 AM to 12 AM? 2 units / hr Bolus setting Insulin Carbohydrate Ratio (s) 12 AM to 12 AM? 1: 1.5 12 AM? to 7 PM 1:6 7 PM to 12 AM 1:5 Correction Factor / Sensitivity Factor 12 AM? to 12 AM 1:20 Active Insulin Time:? 4 hours Target(s): 12 AM? to 12 AM 110 Threshhold for correction 110mg/dL Dexcom sensor average glucose: 6.9 14 day continuous glucose sensor report reviewed Glucose Management indicator 151 % TIme in ranges: 0 % very high (above 250) 24 % high (181-250) 76 % in range (70-180] 0 % low (69-55) 0 % very low (below 54) 18.5 Glucose variability (target <36%) Interpretation of CGMS [readings in target range 76% of the time slight increase this past 2 weeks after breakfast none the previous 2 weeks ] Has neuropathy: Symptoms reported: + numbness, tingling, in lower extremities better since changed to lyrica Has nephropathy Sees nephrology regularly on pedro-i sees neph 1-2 times per year 02/27/2024 eGFR 49 microalbumin 77 Hypoglycemia: rare Hyperglycemia: denies urinary frequency, denies nocturia, denies polydypsia Taken off statin years ago liver related, on fenofibrate and zetia no recent ldl 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 1: 1.5 12 AM? to 7 PM 1:6 7 PM to 12 AM 1:5 Correction Factor / Sensitivity Factor 12 AM? to 12 AM 1:20 Active Insulin Time:? 4 hours Target(s): 12 AM? 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 Absence of acromegalic features. Neck exam reveals nl size thyroid about 15 gms. No thyroid nodules palpable. Heart S1 S2, Reg R/R. No M/R G. Skin exam reveals absence of vitiligo or acanthosis nigricans. no edema Visual exam of foot performed. No ulcerations or open lesions. No inter digit maceration or fissuring. mild onychomycosis nail beds, no callouses. Sensation diminshed to monofilament exam. Vibratory sensation is normal with 128 Hz tuning fork. pulse positive small bunion left foot right foot hammer toe second toe, no pain. Results Reviewed Results Reviewed: Laboratory Last Values Glucose (Clinic) 137 mg/dL (60-115) H 05/30/24 07:43 Assessment & Plan Assessment & Plan (1) Diabetes type 2, uncontrolled: Code(s): E11.65 - Type 2 diabetes mellitus with hyperglycemia Category: Medical Plan: Type 2 diabetic with nephropathy, neuropathy and retinopathy on Omnipod pump along with Agustinunjaro presents today for follow-up. Due to anemia, A1c may be inaccurate. He will go to the lab today for fructosamine and lipid profile. Sensor download looks favorable. The patient had an opportunity to ask questions regarding treatment plan. The patient expressed understanding and agreement with the above treatment plan. The patient is aware they should contact our office by phone for worsening glucose readings or for any low blood sugars which may warrant a change in diabetes medication. Compliance is encouraged with medications and any followup testing/consults which may have been ordered. Orders: Orders Fructosamine Today E11.65 - Type 2 diabetes mellitus with hyperglycemia Lipid Panel Today E11.65 - Type 2 diabetes mellitus with hyperglycemia Patient Instructions: Take 15 carb carbohydrate grams to treat a low sugar (3-4 glucose tablets, half a glass of juice or 15 carbohydrate grams of soft candy such as gummie snacks). Recheck your sugar in 15 minutes and re-treat again with 15 carbohydrate grams if low or still with symptoms. Do not drive a car or operate machinery if you do not know what your blood sugar is, if it is low or in excess of 300. Troubleshooting after starting new pod or inserting new insulin set: Occlusion, adhesive tape sensitivity, redness Check BG 2 hours after site change Safety information: Importance of a backup plan, for manual injections, proper prescriptions and emergency supplies ketone strips, and rules for testing for ketones Symptoms of DKA (diabetic ketoacidosis): early: frequent urination, dry mouth, fatigue, feeling ill, severe symptoms: ketones in the urine, abdominal pain, nausea, vomiting and weakness. It is important to hydrate with sugar free liquids every 15-30 minutes and bring the sugars down to normal levels. If you are moderate or severe with ketones or unable to bring glucose to less than 200, go to the emergency room. Sick day management. Check your feet daily looking for any signs of infection, drainage, redness, ulceration and seek medical attention if this occurs. Break in shoes gradually and do not wear open-toed shoes or walk stocking footed or barefooted. Coding Level of Care Code Est Pt Level 4 (31602) Complex EM visit Add On G2211 Diagnoses Diabetes type 2, uncontrolled E11.65 Time Spent (min) 30 Comment Reviewing labs/provider notes, glucose sensor/pump reports, face to face, chart doc
--- OUTSIDE RECORDS SUMMARY | 2024-05-30 06:56 | XMS_ITS | Encounter Summary ---
Author Organization [facility], Address [address] [facility] [address] [place] [address] Phone Care Team Providers Care Oven Equipment Repairer Name Role Phone Milagros Roper POWER HAIR CLIPPER Primary Care Provider [phone] Reason for Visit * Reason Comments Med Refill Encounter Details Date Type Department Care Team (Late st Contact Info) Description 09/19/2020 Refill [facility] [address] [place] [address] Cassius Mark MD [address] [facility] [place] [phone] Social History Tobacco Use Types Packs/Day Years Used Date Smoking Tobacco: Never Alcohol Use Standard Drinks/Week Comments No 0 (1 standard drink = 0.6 oz pur e alcohol) Sex and Gender Information Value Date Recorded Sex Assigned at Not on file Legal Sex Male 4:36 PM EST Gender Identity Not on file Sexual Orientation Not on file documented as of this encounter Plan of Treatment Not on file documented as of this encounter Visit Diagnoses Not on filedocumented in this encounter Care Teams Oven Equipment Repairer Relationship Specialty Start Date End Date Milagros Roper NP 0515-4482 [place], [place] PCP - General Nurse Practitioner 03/21/19 documented as of this encounter
--- OUTSIDE RECORDS SUMMARY | 2024-05-30 06:56 | XMS_ITS | Encounter Summary ---
Author Organization [facility] Address [address] [place] [address] Care Team Providers Care Curb Worker Name Role Phone Milagros Roper NP Primary Care Provider Encounter Details Date Type Department Care Team (Late st Contact Info) Description 05/23/2024 Lab Requisition [facility] [address] [facility] [place] [phone] Deniz Carbone PA [address] [facility] [address] [place] [phone] Testicular hypofunction Social History Tobacco Use Types Packs/Day Years Used Date Smoking Tobacco: Never Smokeless Tobacco: Never Alcohol Use Standard Drinks/Week Comments No 0 (1 standard drink = 0.6 oz pur e alcohol) Sex and Gender Information Value Date Recorded Sex Assigned at Not on file Legal Sex Male 4:05 PM EST Gender Identity Not on file Sexual Orientation Not on file documented as of this encounter Plan of Treatment Not on file documented as of this encounter Procedures Procedure Name Priority Date/Time Associated Diagnosis Comments CBC WITH AUTO DIFFERENTIAL Routine 05/23/2024 8:16 AM EDT Testicular hypofunction CBC AND DIFFERENTIAL Routine 05/23/2024 8:16 AM EDT Testicular hypofunction documented in this encounter Results * (ABNORMAL) CBC auto differential (05/23/2024 8:16 AM EDT) WBC 9.6 4.8 - 10.8 K/[facility] LAB HEMETOLOGY METHOD 05/23/2024 1:19 PM [facility] RBC 4.80 4.50 - 5.50 M/mcL LAB HEMETOLOGY METHOD 05/23/2024 1:19 PM [facility] Hemoglobin 14.3 13.5 - 17.5 g/dL LAB HEMETOLOGY METHOD 05/23/2024 1:19 PM [facility] Hematocrit 41.6(L) 42.0 - 54.0 % LAB HEMETOLOGY METHOD 05/23/2024 1:19 PM [facility] MCV 86.1 79.0 - 98.0 FL LAB HEMETOLOGY METHOD 05/23/2024 1:19 PM [facility] MCH 29.6 27.0 - 32.0 pcg LAB HEMETOLOGY METHOD 05/23/2024 1:19 PM [facility] MCHC 34.4 32.0 - 37.0 g/dL LAB HEMETOLOGY METHOD 05/23/2024 1:19 PM [facility] RDW 12.6 11.0 - 15.0 % LAB HEMETOLOGY METHOD 05/23/2024 1:19 PM [facility] Platelets 328 130 - 400 K/mcL LAB HEMETOLOGY METHOD 05/23/2024 1:19 PM [facility] MPV 11.7(H) 7.0 - 11.0 FL LAB HEMETOLOGY METHOD 05/23/2024 1:19 PM [facility] NRBC 0.0 <1.0 % LAB HEMETOLOGY METHOD 05/23/2024 1:19 PM [facility] NRBC Absolute 0.00 <0.10 K/mcL LAB HEMETOLOGY METHOD 05/23/2024 1:19 PM [facility] Neutrophils Relative 63.2 % LAB HEMETOLOGY METHOD 05/23/2024 1:19 PM EDT [facility] Lymphocytes Relative 27.0 % LAB HEMETOLOGY METHOD 05/23/2024 1:19 PM [facility] Monocytes Relative 7.2 % LAB HEMETOLOGY METHOD 05/23/2024 1:19 PM [facility] Eosinophils Relative 2.0 % LAB HEMETOLOGY METHOD 05/23/2024 1:19 PM [facility] Basophils Relative 0.3 % LAB HEMETOLOGY METHOD 05/23/2024 1:19 PM [facility] Immature Granulocytes Relative 0.3 % LAB HEMETOLOGY METHOD 05/23/2024 1:19 PM [facility] Neutrophils Absolute 6.05 1.50 - 7.00 K/mcL LAB HEMETOLOGY METHOD 05/23/2024 1:19 PM [facility] Lymphocytes Absolute 2.58 1.00 - 5.00 K/mcL LAB HEMETOLOGY METHOD 05/23/2024 1:19 PM [facility] Monocytes Absolute 0.69 0.20 - 1.00 K/mcL LAB HEMETOLOGY METHOD 05/23/2024 1:19 PM [facility] Eosinophils Absolute 0.19 0.00 - 0.50 K/mcL LAB HEMETOLOGY METHOD 05/23/2024 1:19 PM [facility] Basophils Absolute 0.03 0.00 - 0.20 K/mcL LAB HEMETOLOGY METHOD 05/23/2024 1:19 PM [facility] Immature Granulocytes Absolute 0.03 0.00 - 0.03 K/mcL LAB HEMETOLOGY METHOD 05/23/2024 1:19 PM [facility] Blood Venous blood specimen / Unknown 05/23/2024 8:16 AM EDT 05/23/2024 12:40 PM EDT us Deniz SOTO LAB BLOOD ORDERABLES Final Result [facility] [address] [place] [address], documented in this encounter Visit Diagnoses Diagnosis Testicular hypofunction Other testicular hypofunction documented in this encounter Care Teams Curb Worker Relationship Specialty Start Date End Date Milagros Roper NP [address] [place] [address] PCP - General Internal Medicine 09/05/18 documented as of this encounter
--- OUTSIDE RECORDS SUMMARY | 2024-05-30 06:56 | XMS_ITS | Encounter Summary ---
Author Organization [facility], Address [address] [facility] [address] [place] [address] Phone Care Team Providers Care Ground Operations Crew Member Name Role Phone Milagros Roper MANAGER LINUX Primary Care Provider [phone] Reason for Visit * Reason Comments Med Refill Encounter Details Date Type Department Care Team (Late st Contact Info) Description 10/09/2019 Refill [facility] [address] [place] [phone] Cassius Mark MD [address] [place] [phone] Social History Tobacco Use Types Packs/Day Years [...] on filedocumented in this encounter Care Teams Ground Operations Crew Member Relationship Specialty Start Date End Date Milagros Roper NP [phone] [place], [place] PCP - General Nurse Practitioner 03/21/19 documented as of this encounter
--- OUTSIDE RECORDS SUMMARY | 2024-05-30 06:56 | XMS_ITS | Clinical Summary ---
Author Organization [facility] Address [address] [place] [address] Care Team Providers Care Blanket Washer Name Role Phone YarednelaSabino NP Primary Care Provider [phone] Source Comments PLEASE NOTE, if this patient is a minor, it may be UNLAWFUL to discuss sensitive information that is contained in these records (such as FAMILY PLANNING, MENTAL HEALTH or SUBSTANCE ABUSE) with the minor patient's parent or other person without the patient's specific authorization.[facility] Allergies No known active allergies Medications lisinopril (PRINIVIL,ZESTRIL) 20 mg tabletIndications:Es sential hypertension Per Cardio 0 16 Active lidocaine-prilocaine (EMLA) 2.5-2.5 % creamIndications:Mus culoskeletal pain Apply topically as needed for pain. 30 g 1 11/11/19 [address] Active aspirin [address] tabletIndications:Ty pe 2 diabetes mellitus without complication, with long-term current use of insulin ([facility]),Essential hypertension,Mixed hyperlipidemia Pt purchases OTC 30 Tab 3 11/11/19 16 Active gabapentin (NEURONTIN) 300 mg capsuleIndications:N europathy Per SMA 8 04/01/19 17 Active fish oil-dha-epa 1,200-144-216 mg per capsuleIndications:M ixed hyperlipidemia Take 1 Cap by mouth 3 (three) times daily with meals 90 Cap 5 04/23/19 17 Active TRULICITY 0.75 mg/0.5 mL pnij Per Endo 04/01/19 17 Active metFORMIN (GLUCOPHAGE-XR) 500 mg 24 hr tablet Per Endo 04/01/19 17 Active insulin lispro (HUMALOG PEN, KWIKPEN) 100 unit/mL injectionIndications :Type 2 diabetes mellitus without complication, with long-term current use of insulin (HCC-CMS) Per Endo 15 mL 10 04/25/19 17 Active insulin glargine (LANTUS SOLOSTAR PEN) 100 unit/mL (3 mL) injectionIndications :Type 2 diabetes mellitus without complication, with long-term current use of insulin (HCC-CMS) Per Endo 10 Pen 10 04/25/19 17 Active sildenafil (VIAGRA) 100 mg tabletIndications:Er ectile dysfunction, unspecified erectile dysfunction type Take 1 Tab by mouth once daily as needed for erectile dysfunction 10 Tab 3 06/23/19 17 Active hydroCHLOROthiazide (HYDRODIURIL) 25 mg tabletIndications:Es sential hypertension TAKE 1 TABLET BY MOUTH EVERY DAY 30 Tab 5 02/15/19 18 Active Fenofibrate Nanocrystallized 48 mg tabIndications:Mixed hyperlipidemia TAKE 1 TABLET BY MOUTH EVERY DAY 30 Tab 5 02/21/19 18 Active metoprolol succinate (TOPROL-XL) 100 mg 24 hr tabletIndications:Es sential hypertension Take 1 Tab by mouth once daily Per Cardio 30 Tab 1 06/27/19 18 Active DULoxetine (CYMBALTA) [address] capsule Take 1 Cap by mouth once daily 06/24/19 20 Active Active Problems Problem Noted Date Diagnosed Date Low testosterone 04/13/2020 Overview (04/13/2020): September 2019: followed by [facility] Myofascial pain 08/08/2018 Myalgia 04/28/2018 Overview (04/28/2018): Per [facility] 04/25/18: of of the right coracobrachialis (06/2016) Neck pain 04/28/2018 Overview (04/28/2018): Per [facility] 04/25/2018 Pain in joint, shoulder region 04/28/2018 Overview (04/28/2018): Per [facility] 04/25/2018 Cramps, extremity 04/28/2018 Overview (04/28/2018): Per [facility] 04/25/2018 ED (erectile dysfunction) 06/08/2016 Overview (02/26/2019): On IC injection Bursitis of right elbow 12/29/2015 Overview (2016): - seen by [facility] in 2016 Encounter for diabetic foot exam ([facility]) 12/27 Overview (12/28/2015): 05/2015 in [place] Chronic pain of both knees 07/14/2015 Overview (2016): - seen by [facility] in 2016 Ruptured cervical disc 07/14/2015 Neuropathy 06/25/2015 Lumps on the skin 01/25/2015 Overview (01/25/2015): [facility] 2014 US: no sonographic correlate for the palpable lumps in the upper abdomen Routine eye exam 01/25/2015 Overview (01/25/2015): 2014 negative- [facility] SOB (shortness of breath) 12/29/2014 Overview (06/18/2018): [facility] CXR 2014 negative 06/18/18 Consult with [facility]--ICI trial injectio with good responds Hx of colonoscopy with polypectomy 12/10/2014 Overview (06/23/2015): [facility] 2015- Diverticulosis and internal hemorrhoids CKD (chronic kidney disease) stage 3, GFR 30-59 ml/min ([facility]) 11/28/2014 Overview (01/02/2019): Seen at [facility] on 11/23/18 continue with current regimen. F/u in 6 months` Diabetes mellitus with chronic kidney disease ([facility]) 11/18/2014 Overview (02/25/2018): See [facility] Furnace Attendant; pt on insulin pump--Humolog via Omnipod and also on Trulicity 1.5 mg weekly Essential hypertension 11/18/2014 Overview (06/22/2015): [place] [facility] 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 Echo 2015 normal Hyperlipidemia 11/18/2014 Family History Medical History Relation Name Comments Cancer Father prostate cancer Diabetes Father Hypertension Father Cancer Mother colon cancer Diabetes Mother High Cholesterol Mother Hypertension Mother Relation Name Status Comments Father Alive Mother Alive Social History Tobacco Use Types Packs/Day Years Used Date Smoking Tobacco: Never Alcohol Use Standard Drinks/Week Comments No 0 (1 standard drink = 0.6 oz pur e alcohol) Social Connections Answer Date Recorded Social Connections and Isolation 0 10/04/2018 Financial Resource Strain Answer Date R ecorded Financial Resource Strain 0 2018 Stress Answer Date Recorded Stress 0 10/04/2018 Physical Activity Answer Date Recorded Physical Activity 0 10/04/2018 Food Insecurity Answer Date Recorded Food 0 10/04/2018 Transportation Needs Answer Date Record ed Transportation 0 10/04/2018 Housing Stability Answer Date Recorded Housing 0 10/04/2018 Safety and Environment Answer Date Kieran rded Safety 0 10/04/2018 Utilities Answer Date Recorded Utilities 0 10/04/2018 Employment Answer Date Recorded Employment 0 10/04/2018 Sex and Gender Information Value Date Recorded Sex Assigned at Not on file Legal Sex Male 7:35 AM PDT Gender Identity Not on file Sexual Orientation Not on file Last Filed Vital Signs Vital Sign Reading Time Taken Comments Blood Pressure 124/86 06/20/2016 2:55 PM EDT Pulse 81 06/20/2016 2:55 PM EDT Temperature 37.2 ??C (98.9 ??F) 06/20/2016 2:55 PM ED T Respiratory Rate 18 06/20/2016 2:55 PM EDT Oxygen Saturation 98% 12/10/2014 3:05 PM EDT Inhaled Oxygen Concentration - - Weight 102.1 kg (225 lb) 06/20/2016 2:55 PM EDT Height 180.3 cm (5' 11 ) 07/10/2015 4:03 PM EDT Body Mass Index 31.38 07/10/2015 4:03 PM EDT Plan of Treatment Not on file Procedures Procedure Name Priority Date/Time Associated Diagnosis Comments REFERRAL SCANNED DOCUMENT 05/23/2024 3:00 AM EDT from Last 3 Months Results * REFERRAL SCANNED DOCUMENT (05/23/2024 3:00 AM EDT) 05/23/2024 3:00 AM EDT Sabino Eduardo RECREATION ADVISER SCAN REFERRAL Final Result from Last 3 Months Insurance [facility] [employer] PLAN Member Subscriber Plan / Payer (Ef fective 2014-Present) Name:Shayyshweta Deniz J Relation to Subscriber:Self Name:Deniz Khan Elmer Payer ID:[id number] Group ID:[id number] Type:Medicaid Address: [facility] [address] [place] [address] [facility] DENTAL [facility] D[facility] Care Teams Blanket Washer Relationship Specialty Start Date End Date Sabino Eduardo NP [address] [place] [address] PCP - General 12/21/17
--- OUTSIDE RECORDS SUMMARY | 2024-05-30 06:59 | XMS_ITS | Clinical Summary ---
Author Organization [facility], Address [address] [place] [address] Phone Care Team Providers Care Casing Wringer Operator Name Role Phone Milagros Roper NP Primary Care Provider [phone] Allergies No known active allergies Medications ASPIRIN 81 PO Pt purchases OTC 6 Active baclofen (LIORESAL) 10 MG tablet Comments: Filled Date: Oct 21 2016 12:00AM Duration: 30 Active ezetimibe (ZETIA) 10 MG tablet Comments: Filled Date: Oct 07 2016 12:00AM Duration: 30 Active fenofibrate (TRICOR) 48 MG tablet Comments: Filled Date: Aug 29 2016 12:00AM Patient Notes: TK 1 T PO QD Duration: 30 7 Active gabapentin (NEURONTIN) 800 MG tablet Comments: Filled Date: Aug 30 2016 12:00AM Duration: 30 Active insulin lispro (HUMALOG) 100 UNIT/ML injection Comments: Filled Date: Aug 29 2016 12:00AM Patient Notes: U UTD VIA PUMP Duration: 24 6 Active ketoconazole (NIZORAL) 2 % cream Comments: Filled Date: Nov 04 2016 12:00AM Duration: 14 Active lisinopril (PRINIVIL,ZEST RIL) 40 MG tablet Comments: Filled Date: Aug 29 2016 12:00AM Patient Notes: TK 1 T PO QD Duration: 30 6 Active metFORMIN XR (GLUCOPHATE-XR ) 500 MG 24 hr tablet Comments: Filled Date: Aug 29 2016 12:00AM Patient Notes: TK 1 T PO BID Duration: 30 6 Active metoprolol succinate XL (TOPROL-XL) 100 MG 24 hr tablet Comments: Filled Date: Aug 29 2016 12:00AM Patient Notes: TK 1 T PO QD Duration: 30 7 Active sildenafil (VIAGRA) 100 MG tablet Take 100 mg by mouth 7 Active acetaminophen (TYLENOL) 500 MG tablet Take 1,000 mg by mouth Active valACYclovir (VALTREX) 1 g tablet Take 1,000 mg by mouth twice a day Active rOPINIRole (REQUIP) 0.25 MG tablet Take 0.25 mg by mouth Active pravastatin (PRAVACHOL) 10 MG tablet Take 10 mg by mouth Active HYDROmorphone (DILAUDID) 2 MG tablet Take 2 mg by mouth A ctive hydroCHLOROthi azide (HYDRODIURIL) 25 MG tablet 25 mg daily 8 Active Febuxostat (ULORIC) 40 MG tablet Take 40 mg by mouth daily 0 Active Dulaglutide 1.5 MG/0.5ML solution pen-injector Inject 1.5 mg under the skin Active colchicine 0.6 MG tablet Take 0.6 mg by mouth daily 0 Active fluticasone (FLONASE) 50 MCG/ACT nasal spray USE ONE SPRAY IN BOTH NOSTRILS DAILY IN THE MORNING 1 Active lisinopril 40 MG tablet TAKE 1 TABLET BY MOUTH EVERY DAY 1 Active Insulin Disposable Pump (Omnipod 5 G6 Pod, Gen 5,) misc DIRECTED- PLEASE CHANGE POD EVERY 48 HOURS 4 Active rizatriptan (MAXALT) 10 MG tablet TAKE 1 TABLET BY MOUTH ONCE, MAY REPEAT AT 2 HOUR INTERVALS, DO NOT EXCEED 3 TABS IN 24 HOURS 3 Active Testosterone 20.25 MG/ACT (1.62%) gel APPLY 1 PUMP EVERY MORNING TO SHOULDERS/CHEST 4 Active Mounjaro 5 MG/0.5ML solution pen-injector INJECT 0.5 ML (5 MG) SUBCUTANEOUSLY WEEKLY 4 Active amLODIPine (NORVASC) 5 MG tablet Take 1 tablet (5 mg total) by mouth 1 (one) time each day 90 tablet 3 4 Active Active Problems Problem Noted Date Diagnosed Date Hypercholesterolemia 03/13/2023 Neuropathy due to diabetes mellitus 03/13/2023 Hyperuricemia 09/13/2019 Overview (03/13/2023): Last Assessment & Plan: On Uloric and colchicine Denies any gout flares Check UA, CMP Continue current tx. At some point consider d/cing colchicine Chronic kidney disease due to hypertension 03/21 Renal disorder due to type 2 diabetes mellitus 0 03/21/2019 Chronic kidney disease stage 3 11/28/2014 Overview (03/21/2019): Seen at [facility] care and transplant on 11/23/18 continue with current regimen. 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 Echo 2015 normal Encounters Date Type Department Care Team Description 03/12/2024 Telephone [facility] [address] [place] [address] Leatha Edge [place] from Last 3 Months Immunizations Immunization Administration Dates Next Due Pfizer SARS-COV-2 06/30/2020,06/02/2020 Social History Tobacco Use Types Packs/Day Years [...] Reading Time Taken Comments Blood Pressure 124/86 10/09/2023 1:42 PM EDT Pulse - - Temperature - - Respiratory Rate - - Oxygen Saturation - - Inhaled Oxygen Concentration - - Weight 98 kg (216 lb) 11/23/2018 12:00 PM EDT Height 185.4 cm (6' 1 ) 11/23/2018 12:00 PM EDT Body Mass Index 28.5 11/23/2018 12:00 PM EDT Plan of Treatment Health Maintenance Due Date Last Done Comments Pneumococcal Vaccine: 50+ Ye ars (1 of 2 - PCV) 04/25/1979 Colorectal Cancer Screening: Annual FOBT 2009 Colorectal Cancer Screening: Colonoscopy 2009 Colorectal Cancer Screening: Sigmoidoscopy 2009 Diabetes: Ophthalmology Exam 03/21/2019 Diabetes: Pedal Pulse Checked 03/21/2019 Diabetes: Sensory Foot Exam 03/21/2019 Diabetes: Visual Foot Exam 03/21/2019 Diabetes: Hemoglobin A1C 03/07/2021 12/05/2020 Influenza Vaccine (Season Ended) 2024 Hepatitis B Vaccine Aged Out No longe r eligible based on patient's age to complete this topic Procedures Procedure Name Priority Date/Time Associated Diagnosis Comments HEMOGLOBIN A1C Routine 12/05/2020 1:57 PM EDT Chronic kidney disease stage 3 (HCC) Type 2 diabetes mellitus with complication, not otherwise specified (HCC) from Last 3 Months or Most Recently Relevant to Health Maintenance Results * (ABNORMAL) Hemoglobin A1c (12/05/2020 1:57 PM EDT) Hemoglobin A1C 7.7(H) (4.0-5.6) % [facility] Comment: MONITORING: In known diabetic patients, hemoglobin A1c targets should be discussed with health care provider. DIAGNOSTIC USE: ??The [place] Diabetes Association (ADA) and the World Health Organization (WHO) recommend the use of HbA1c to diagnose diabetes using a threshold of 6.5%. Patients who have an HbA1c between 5.7% and 6.4% are considered at increased risk for developing diabetes in the future. CAUTION: Falsely low HbA1c results may be observed in patients with hemolytic anemia, homozygous forms of abnormal hemoglobin (e.g. SS, CC, SC), , recent blood loss or hemoglobin F greater than 7%. Fructosamine may be used as an alternate test in these cases. REFERENCE: ADA: Standards of Medical Care in Diabetes 2020, The Journal of Clinical and Applied Research and Education Volume 43, Supplement 1 Testing performed or reported by [facility], a Service of [facility], [address] [place] [address] Octaviano Mcrae MD, School Janitor [facility]# [id number] Blood (Blood, Venous) 12/05/2020 1:57 PM EDT 12/05/2020 1:58 PM EDT Cassius Mark MD LAB BLOOD ORDERABLES Final Result [facility] from Last 3 Months or Most Recently Relevant to Health Maintenance Insurance Care Teams Casing Wringer Operator Relationship Specialty Start Date End Date Milagros Roper NP [phone] [place], [place] PCP - General Nurse Practitioner 03/21/19
--- OUTSIDE RECORDS SUMMARY | 2024-05-30 06:59 | XMS_ITS | Encounter Summary ---
Author Organization [facility], Address [address] [place] [address] Phone Care Team Providers Care Crop Setting Out Machine Operator Name Role Phone Milagros Roper NP Primary Care Provider [phone] Encounter Details Date Type Department Care Team (Late st Contact Info) Description 06/02/2021 Documentation Only [facility], [address] [place] [address] Cassius Mark MD [address] [place] [phone] Social History Tobacco Use Types Packs/Day Years [...] on filedocumented in this encounter Care Teams Crop Setting Out Machine Operator Relationship Specialty Start Date End Date Milagros Roper NP [phone] [place], [place] PCP - General Nurse Practitioner 03/21/19 documented as of this encounter
--- OUTSIDE RECORDS SUMMARY | 2024-05-30 06:59 | XMS_ITS | Encounter Summary ---
Author Organization [facility], Address [address] [facility] [address] [place] [address] Phone Care Team Providers Care Automobile Upholstery Trim Installer Name Role Phone Milagros Roper GYRO MECHANIC Primary Care Provider [phone] Reason for Visit * Reason Comments Med Refill Encounter Details Date Type Department Care Team (Late st Contact Info) Description 11/03/2020 Refill [facility] [address] [place] [phone] Cassius Mark MD [address] [place] [phone] Social History Tobacco Use Types Packs/Day Years [...] on filedocumented in this encounter Care Teams Automobile Upholstery Trim Installer Relationship Specialty Start Date End Date Milagros Roper NP [phone] [place], [place] PCP - General Nurse Practitioner 03/21/19 documented as of this encounter
--- OUTSIDE RECORDS SUMMARY | 2024-05-30 06:59 | XMS_ITS | Clinical Summary ---
Author Organization [facility] Address [address] [address] Phone Care Team Providers Care Piccolo Mechanic Name Role Phone Milagros Roper NP Primary Care Provider [phone] Encounters Date Type Department Care Team Description 05/23/2024 Lab Requisition [facility] - Main Lab 299 [facility] [place] [address] Deniz Carbone PA Testicular hypofunction from Last 3 Months Surgical History Surgery Date Site/Laterality Comments APPENDECTOMY 08/2018 PROCEDURE: LAPAROSCOPIC APPENDECTOMY; COMMENT: Dr. Valiente Social History Tobacco Use Types Packs/Day Years Used Date Smoking Tobacco: Never Smokeless Tobacco: Never Alcohol Use Standard Drinks/Week Comments No 0 (1 standard drink = 0.6 oz pur e alcohol) Sex and Gender Information Value Date Recorded Sex Assigned at Not on file Legal Sex Male 4:05 PM EST Gender Identity Not on file Sexual Orientation Not on file Obstetrics History Plan of Treatment Health Maintenance Due Date Last Done Comments DTaP,Tdap,and Td Vaccines (1 - Tdap) 04/25/1979 Pneumococcal Vaccine: 50+ Ye ars (1 of 1 - PCV) 2010 Zoster Vaccines (1 of 2) 2010 Cholesterol Screening (Lipid Panel) 01/12/2022 Colorectal Cancer Screening: Colonoscopy 01/12/2022 Depression Screening 01/12/2022 HIV Screening 01/12/2022 Hepatitis C Screening 01/12/2022 Social Influencers of Health Screening 01/12/2022 Hypertension/CHF/CAD Annual BMP Blood Test 10/09/2023 COVID-19 Vaccine (2023-2 5 season) 2023 Influenza Vaccine (Season Ended) 2024 RSV Immunization Adult Patie nts (1 - 1-dose 75+ series) 04/25/2035 HIB Vaccines Aged Out No longer eligi ble based on patient's age to complete this topic HPV Vaccines Aged Out No longer eligi ble based on patient's age to complete this topic Hepatitis A Vaccines Aged Out No long er eligible based on patient's age to complete this topic Hepatitis B Vaccines Aged Out No long er eligible based on patient's age to complete this topic IPV Vaccines Aged Out No longer eligi ble based on patient's age to complete this topic MMR Vaccines Aged Out No longer eligi ble based on patient's age to complete this topic Meningococcal ACWY Vaccine Aged Out N o longer eligible based on patient's age to complete this topic Meningococcal B Vaccine Aged Out No l onger eligible based on patient's age to complete this topic Pneumococcal Vaccine: Pediat rics (0 to 5 Years) and At-Risk Patients (6 to 64 Years) Aged Out No longer eligible b ased on patient's age to complete this topic RSV Immunization Patients Un tam 20 months Aged Out No longer eligible b ased on patient's age to complete this topic Varicella Vaccines Aged Out No longer eligible based on patient's age to complete this topic Procedures Procedure Name Priority Date/Time Associated Diagnosis Comments CBC WITH AUTO DIFFERENTIAL Routine 05/23/2024 8:16 AM EDT Testicular hypofunction CBC AND DIFFERENTIAL Routine 05/23/2024 8:16 AM EDT Testicular hypofunction from Last 3 Months Results * (ABNORMAL) CBC auto differential (05/23/2024 8:16 AM EDT) WBC 9.6 4.8 - 10.8 K/mcL LAB HEMETOLOGY METHOD 05/23/2024 1:19 PM EDT [facility] RBC 4.80 4.50 - 5.50 M/mcL LAB HEMETOLOGY METHOD 05/23/2024 1:19 PM EDT [facility] Hemoglobin 14.3 13.5 - 17.5 g/dL LAB HEMETOLOGY METHOD 05/23/2024 1:19 PM [facility] Hematocrit 41.6(L) 42.0 - 54.0 % LAB HEMETOLOGY METHOD 05/23/2024 1:19 PM [facility] MCV 86.1 79.0 - 98.0 FL LAB HEMETOLOGY METHOD 05/23/2024 1:19 PM [facility] MCH 29.6 27.0 - 32.0 pcg LAB HEMETOLOGY METHOD 05/23/2024 1:19 PM [facility] MCHC 34.4 32.0 - 37.0 g/dL LAB HEMETOLOGY METHOD 05/23/2024 1:19 PM [facility] RDW 12.6 11.0 - 15.0 % LAB HEMETOLOGY METHOD 05/23/2024 1:19 PM [facility] Platelets 328 130 - 400 K/mcL LAB HEMETOLOGY METHOD 05/23/2024 1:19 PM [facility] MPV 11.7(H) 7.0 - 11.0 FL LAB HEMETOLOGY METHOD 05/23/2024 1:19 PM [facility] NRBC 0.0 <1.0 % LAB HEMETOLOGY METHOD 05/23/2024 1:19 PM [facility] NRBC Absolute 0.00 <0.10 K/mcL LAB HEMETOLOGY METHOD 05/23/2024 1:19 PM [facility] Neutrophils Relative 63.2 % LAB HEMETOLOGY METHOD 05/23/2024 1:19 PM [facility] Lymphocytes Relative 27.0 % LAB HEMETOLOGY METHOD 05/23/2024 1:19 PM [facility] Monocytes Relative 7.2 % LAB HEMETOLOGY METHOD 05/23/2024 1:19 PM [facility] Eosinophils Relative 2.0 % LAB HEMETOLOGY METHOD 05/23/2024 1:19 PM EDT [facility] Basophils Relative 0.3 % LAB HEMETOLOGY METHOD 05/23/2024 1:19 PM EDT [facility] Immature Granulocytes Relative 0.3 % LAB HEMETOLOGY METHOD 05/23/2024 1:19 PM EDT [facility] Neutrophils Absolute 6.05 1.50 - 7.00 K/mcL LAB HEMETOLOGY METHOD 05/23/2024 1:19 PM EDT [facility] Lymphocytes Absolute 2.58 1.00 - 5.00 K/mcL LAB HEMETOLOGY METHOD 05/23/2024 1:19 PM EDT [facility] Monocytes Absolute 0.69 0.20 - 1.00 K/mcL LAB HEMETOLOGY METHOD 05/23/2024 1:19 PM EDT [facility] Eosinophils Absolute 0.19 0.00 - 0.50 K/mcL LAB HEMETOLOGY METHOD 05/23/2024 1:19 PM EDT [facility] Basophils Absolute 0.03 0.00 - 0.20 K/mcL LAB HEMETOLOGY METHOD 05/23/2024 1:19 PM EDT [facility] Immature Granulocytes Absolute 0.03 0.00 - 0.03 K/mcL LAB HEMETOLOGY METHOD 05/23/2024 1:19 PM EDT [facility] Blood Venous blood specimen / Unknown 05/23/2024 8:16 AM EDT 05/23/2024 12:40 PM EDT us Deniz SOTO LAB BLOOD ORDERABLES Final Result [facility] [address] [place] [address], from Last 3 Months Insurance [facility] PL[facility] Care Teams Piccolo Mechanic Relationship Specialty Start Date End Date Milagros Roper NP [address] [place] [id number] PCP - General Internal Medicine 09/05/18
--- OUTSIDE RECORDS SUMMARY | 2024-05-30 06:59 | XMS_ITS | Encounter Summary ---
Author Organization [facility], Address [address] [place] [address] Phone Care Team Providers Care Nature Photographer Name Role Phone Milagros Roper SCALE INSTALLER Primary Care Provider Encounter Details Date Type Department Care Team (Late st Contact Info) Description 10/23/2023 Documentation Only [facility], [address] [place] [address] Leatha Edge[place], [place] [address] [place] [address] Social History Tobacco Use Types Packs/Day Years [...] on filedocumented in this encounter Care Teams Nature Photographer Relationship Specialty Start Date End Date Milagros Roper NP [phone] [place], [place] PCP - General Nurse Practitioner 03/21/19 documented as of this encounter
[2024-05-30 07:34] VITALS: BP 120/70; PULSE 73; O2SAT 95
[2024-05-30 07:48] LABS: Glucose, Whole Blood 137 mg/dL (60-115)
== END 2024-05-30 07:53 | disposition home or self-care (01) ==
LOC: HO.ENCR 06:54
PROVIDERS: PCP Internal Medicine; Visit Provider Nurse Practitioner Adult Health
DX: E11.65 Type 2 diabetes mellitus with hyperglycemia (principal)
CPT/HCPCS: 99214; G2211

== ENCOUNTER 2024-08-21 11:17 | Outpatient (AMB) | payer OTHER, SELFPAY ==
--- NOTE | 2024-08-21 11:27 | A.OFFVIS_ITS ---
Vital Signs 08/21/24 11:28 Height 5 ft 1 in Weight 213 lb 10.3 oz BMI 40.4 BP 152/88 H Blood Pressure Location Rt brachial Position Sitting Pulse 98 Pulse Source Pulse Oximeter Pulse Oximetry (%) 98 Oxygen Delivery Method Room Air Intake Visit Reasons: T2DM Intake Note: Patient presents today for a follow-up on Type 2 Diabetes Mellitus: Last Diabetic eye exam was on: 03/2024 Last Podiatry exam was on: Does not see a Sustainability Analyst Most recent HbA1c: 5.3%, 08/21/2024 Random Glucose- 129 mg/dL, Today Plumbing Foreman Required: No Accompanied by: Self / Same As Patient Allergies No Known Allergies Allergy (Verified 08/21/24 11:28) Medication List - Last Reconciled 08/22/24 by Poornima Redding NP acetone (urine) test (Ketone Urine Test strips) As directed glucose over 250, nausea, vomiting, illness amlodipine 5 mg PO DAILY 30 days blood sugar diagnostic (FreeStyle Lite Strips) As directed prn tid sensor failure, confirm glucose blood-glucose meter (FreeStyle [place] Lite kit) As directed colchicine 0.6 mg PO DAILY ezetimibe (Zetia) 10 mg PO DAILY 30 days febuxostat 40 mg PO DAILY fenofibrate nanocrystallized 48 mg PO DAILY glucagon 3 mg/actuation (Baqsimi) 3 mg intranasal .prn PRN 30 days MDD 6 mg insulin glargine (Lantus U-100 Insulin) 20 units (0.2 mL) subcut DAILY PRN 30 days MDD 20 units insulin lispro up to 100 units via insulin pump subcutaneously daily; insulin pump cart,auto,BT,G6/7 (Omnipod 5 G6-G7 Pods (Gen 5) subcutaneous cartridge) DIRECTED- PLEASE CHANGE POD EVERY 48 HOURS insulin pump cart,auto,BT-cntr (Omnipod 5 G6 Intro Kit (Gen 5) subcutaneous cartridge with controller) As directed insulin syringe-needle U-100 (BD Insulin Syringe Ultra-Fine) As directed up to qid for pump failure or glucose correction lancets (FreeStyle Lancets) 4 times a day prn sensor failure or to confirm glucose lancets (FreeStyle Lancets) 4 times a day prn sensor failure or to confirm glucose lisinopril 40 mg PO DAILY 30 days metoprolol succinate ER 100 mg PO DAILY 30 days pregabalin (Lyrica) 150 mg PO DAILY ropinirole 0.25 mg PO testosterone 40.5 mg topical QAM tirzepatide (Mounjaro) 10 mg (0.5 mL) subcut QWEEK 28 days ubrogepant mg PO HPI Comments Details: 64 year old male with type 2 diabetes presents for management of diabetes. HgbA1C 05/30/24 5.2%, previous 5.6% 02/27/24. Patient has anemia which may render A1c in accurate. Fructosamine 02/27/24 296 which is equivalent to an A1c is 7.3 %. Today in the office a1c is 5.3% Micro and macrovascular complications: + nephropathy , CKD 3, + neuropathy, Diabetes medications: Mounjaro 7.5 mg weekly, Admelog via omnipod pump for approx 5 years. Lantus backup 20 units . Basal rate(s) (units/hour) : 12 AM to 12 AM? 2 units / hr Bolus setting Insulin Carbohydrate Ratio (s) 12 AM to 12 AM? 1: 1.5 12 AM? to 7 PM 1:6 7 PM to 12 AM 1:5 Correction Factor / Sensitivity Factor 12 AM? to 12 AM 1:20 Active Insulin Time:? 4 hours Target(s): 12 AM? to 12 AM 110 Threshhold for correction 110mg/dL Dexcom average glucose: 157 14 day continuous glucose monitor report reviewed Days with CGM data 66 % TIme in ranges: 2 % very high (above 250) 35 % high ?(181-250) 63 % in range ?(70-180] 0 % low (69-55) 0 % ?very low (below 54) Interpretation well controlled Has neuropathy: Symptoms reported: + numbness, tingling, in lower extremities better since changed to lyrica Has nephropathy Sees nephrology regularly on pedro-i sees neph 1-2 times per year 02/27/2024 eGFR 49 microalbumin 77 Hypoglycemia: rare Hyperglycemia: denies urinary frequency, denies nocturia, denies polydypsia Taken off statin years ago liver related, on fenofibrate and zetia no recent ldl Bread Pan Greaser - CDE education: Has been seen in the past Sustainability Analyst: denies Dental exam: goes twice year Ophthalmology evaluation: 04/2023, reports retinopathy in right eye currently had received anti VEGF therapy, last exam no changes scheduled for eye exam in March 2024, treatments: he no longer going for Rx eyes stable Regular exercise. 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 1: 6 5PM 12 AM? to 7 PM 1:6 7 PM to 12 AM 1:5 Correction Factor / Sensitivity Factor 12 AM? to 12 AM 1:20 Active Insulin Time:? 4 hours Target(s): 12 AM? 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 CKD (chronic kidney disease) stage 3, GFR 30-59 ml/min Diabetes type 2, uncontrolled Surgical History History of appendectomy Hx of colonoscopy History of reversal of ileostomy Family History Father Diabetes Hypertension Mother Diabetes Hypertension Social History Household Members: Spouse Household Members Other:: Alcohol intake: never Patient Tobacco Use Status: Never used Tobacco Physical Exam Vital Signs: Last Vital Signs Pulse 98 08/21/24 11:28 BP 152/88 H 08/21/24 11:28 Pulse Ox 98 08/21/24 11:28 Oxygen Delivery Method Room Air 08/21/24 11:28 BMI result Body Mass Index 40.4 Const Other: Absence of Cushingoid features. Absence of acromegalic features. Neck exam reveals nl size thyroid about 15 gms. No thyroid nodules palpable. Heart S1 S2, Reg R/R. No M/R G. Skin exam reveals absence of vitiligo or acanthosis nigricans. No edema Visual exam of foot performed. No ulcerations or open lesions. No inter digit maceration or fissuring. No onychomycosis, no callouses. Sensation intact to monofilament exam. Vibratory sensation is normal with 128 Hz tuning fork. Office Procedures Glucose Monitoring Details Details: see [facility] [id number] - Glucose monitoring, continuous-physician I&R Procedure code (CPT) selection complete Results AMB Hemoglobin A1c AMB Hemoglobin A1c 5.3 % Last Edit by NITESH Smiley on 08/21/24 11:43 Results Reviewed Results Reviewed: Laboratory Last Values Glucose (Clinic) 129 mg/dL (60-115) H 08/21/24 11:33 Hgb A1c (Clinic) 5.3 % (4.0-6.0) 08/21/24 11:39 Assessment & Plan Assessment & Plan (1) Diabetes type 2, uncontrolled: Code(s): E11.65 - Type 2 diabetes mellitus with hyperglycemia Category: Medical Plan: 64-year-old type 2 diabetic with a stable retinopathy, stable nephropathy and neuropathy on an insulin pump with the excellent glycemic control. A1c may not be a valid indicator due to some anemia. His glucose management indicator on his pump download is 157 in his sensor indicates excellent control. The patient had an opportunity to ask questions regarding treatment plan. The patient expressed understanding and agreement with the above treatment plan. The patient is aware they should contact our office by phone for worsening glucose readings or for any low blood sugars which may warrant a change in diabetes medication. Compliance is encouraged with medications and any followup testing/consults which may have been ordered. Orders: Orders AMB Hemoglobin A1c 08/21/24 E11.65 - Type 2 diabetes mellitus with hyperglycemia AMB Glucose Monitoring Today E11.65 - Type 2 diabetes mellitus with hyperglycemia Patient Instructions: Symptoms of DKA (diabetic ketoacidosis): early: frequent urination, dry mouth, fatigue, feeling ill, severe symptoms: ketones in the urine, abdominal pain, nausea, vomiting and weakness. It is important to hydrate with sugar free liquids every 15-30 minutes and bring the sugars down to normal levels. If you are moderate or severe with ketones or unable to bring glucose to less than 200, go to the emergency room. Troubleshooting after starting new pod or inserting new insulin set: Occlusion, adhesive tape sensitivity, redness Check BG 2 hours after site change Safety information: Importance of a backup plan, for manual injections, proper prescriptions and emergency supplies ketone strips, and rules for testing for ketones Check your feet daily looking for any signs of infection, drainage, redness, ulceration and seek medical attention if this occurs. Break in shoes gradually and do not wear open-toed shoes or walk stocking footed or barefooted. Always carry a source of sugar Coding Level of Care Code Est Pt Level 4 (26440) Complex EM visit Add On G2211 Diagnoses Diabetes type 2, uncontrolled E11.65 CPT Codes Details - CPT: 52647 - Glucose monitoring, continuous-physician I&R ([id number]) Time Spent (min) 30 Comment Reviewing labs/provider notes, glucose sensor/pump reports, face to face, chart doc
[2024-08-21 11:28] VITALS: BP 152/88; PULSE 98; O2SAT 98; BMI 40.4
[2024-08-21 11:38] LABS: Glucose, Whole Blood 129 mg/dL (60-115)
--- OUTSIDE RECORDS SUMMARY | 2024-08-21 12:30 | XMS_ITS | Clinical Summary ---
Author Organization [facility] Address [address] [place] [address] Care Team Providers Care Assistant Professor Of Radiology Name Role Phone JeramyjuliensolonelaSabino NP Primary Care Provider [phone] Source Comments PLEASE NOTE, if this patient [...] complication, with long-term current use of insulin ([facility]),Essential hypertension,Mixed hyperlipidemia Pt purchases OTC 30 Tab [...] complication, with long-term current use of insulin ([facility]) Per Endo 15 mL 10 04/25/19 17 Active insulin glargine (LANTUS SOLOSTAR PEN) 100 unit/mL (3 mL) injectionIndications :Type 2 diabetes mellitus without complication, with long-term current use of insulin ([facility]) Per Endo 10 Pen 10 04/25/19 17 [...] pain 08/08/2018 Myalgia 04/28/2018 Overview (04/28/2018): Per [facility] 04/25/18: of of the right coracobrachialis (06/2016) Neck pain 04/28/2018 Overview (04/28/2018): Per [facility] 04/25/2018 Pain in joint, shoulder region 04/28/2018 Overview (04/28/2018): Per [facility] 04/25/2018 Cramps, extremity 04/28/2018 Overview (04/28/2018): Per [facility] 04/25/2018 ED (erectile dysfunction) 06/08/2016 Overview (02/26/2019): On IC injection Bursitis of right elbow 12/29/2015 Overview (2016): - seen by Jacques in 2016 Encounter for diabetic foot exam ([facility]) 12/28/2015 Overview (12/28/2015): 05/2015 in [place] Chronic pain of both knees 07/14/2015 Overview (2016): - seen by Jacques in 2016 Ruptured cervical disc 07/14/2015 Neuropathy 06/25/2015 Lumps on the skin 01/25/2015 Overview (01/25/2015): Lise 2014 US: no sonographic correlate for the palpable lumps in the upper abdomen Routine eye exam 01/25/2015 Overview (01/25/2015): 2014 negative- [facility] [place] SOB (shortness of breath) 12/29/2014 Overview (06/18/2018): Lise CXR 2014 negative 06/18/18 Consult with [facility]--ICI trial injectio with good responds Hx of colonoscopy with polypectomy 12/10/2014 Overview (06/23/2015): Lise 2015- Diverticulosis and internal hemorrhoids CKD (chronic kidney disease) stage 3, GFR 30-59 ml/min ([facility]) 11/28/2014 Overview (01/02/2019): Seen at [facility] care [facility] transplant on 11/23/18 continue with current regimen. F/u in 6 months` Diabetes mellitus with chron ic kidney disease ([facility]) 11/18/2014 Overview (02/25/2018): See [facility] Backup Operator; pt on insulin pump--Humolog via Omnipod and also on Trulicity 1.5 mg weekly Essential hypertension 11/18/2014 Overview (06/22/2015): [place] [facility] [place] 2015: hall monitor Echo 2015 normal Hyperlipidemia 11/18/2014 Family History [...] 81 06/20/2016 2:55 PM EDT Temperature 37.2 C (98.9 F) 06/20/2016 2:55 PM EDT Respiratory Rate 18 06/20/2016 2:55 PM EDT [...] EDT) 05/23/2024 3:00 AM EDT Sabino Eduardo NP SCAN REFERRAL Final Result from Last 3 Months Insurance [facility] [employer] [facility] Member Subscriber Plan / Payer (Ef fective 2014-Present) Name:Shayyshweta Deniz J Relation to Subscriber:Self Name:Deniz Khan Elmer Payer ID:[id number] Group ID:[id number] Type:Medicaid Address: [address] [address] [place] [address] [facility] Care Teams Assistant Professor Of Radiology Relationship Specialty Start Date End Date Sabino Eduardo NP [address] [place] [address] PCP - General 12/21/17
--- OUTSIDE RECORDS SUMMARY | 2024-08-21 12:30 | XMS_ITS | Encounter Summary ---
Author Organization [facility] Address [address] [facility] [address] [place] [address] Phone Care Team Providers Care Business Development Sales Executive Name Role Phone Milagros Roper NP Primary Care Provider [phone] Reason for Visit * Reason Comments Med Refill Encounter Details Date Type Department Care Team (Late Contact Info) Description 09/19/2020 Refill [facility] [address] [place] [address] Cassius Mark MD [address] [place] [address] Social History Tobacco Use Types Packs/Day Years [...] as of this encounter Plan of Treatment Upcoming Encounters Date Type Department Care Team (Late Contact Info) Description 11/11/2024 2:30 PM EDT Office Visit [facility], [address] [place] [address] Adriana Day MD [address] [place] [address] documented as of this encounter Visit Diagnoses Not on filedocumented in this encounter Care Teams Business Development Sales Executive Relationship Specialty Start Date End Date Milagros Roper NP [address] [place], [place] PCP - General Nurse Practitioner 03/21/19 documented as of this encounter
--- OUTSIDE RECORDS SUMMARY | 2024-08-21 12:30 | XMS_ITS | Encounter Summary ---
Author Organization [facility] Address [address] [place] [address] Care Team Providers Care Gelatin Plant Supervisor Name Role Phone Unavailable Primary Care Provider Unavailabl e Encounter Details Date Type Department Care Team (Late st Contact Info) Description 05/23/2024 Lab Requisition [facility] [address] [facility] [place] [address] Deniz Carbone PA [address] [facility] [address] [place] [address] Testicular hypofunction Social History Tobacco Use Types [...] AM EDT) WBC 9.6 4.8 - 10.8 K/[facility] LAB [facility] RBC 4.80 4.50 - 5.50 M/mcL LAB HEMETOLOGY METHOD 05/23/2024 1:19 PM [facility] Hemoglobin 14.3 13.5 - 17.5 g/dL LAB HEMETOLOGY METHOD 05/23/2024 1:19 PM [facility] Hematocrit 41.6(L) 42.0 - 54.0 % LAB HEMETOLOGY METHOD 05/23/2024 1:19 PM [facility] MCV 86.1 79.0 - 98.0 FL LAB HEMETOLOGY METHOD 05/23/2024 1:19 PM [facility] MCH 29.6 27.0 - 32.0 pcg LAB HEMETOLOGY METHOD 05/23/2024 1:19 PM [facility] MCHC 34.4 32.0 - 37.0 g/dL LAB HEMETOLOGY METHOD 05/23/2024 1:19 PM [facility] RDW 12.6 11.0 - 15.0 % LAB HEMETOLOGY METHOD 05/23/2024 1:19 PM [facility] Platelets 328 130 - 400 K/mcL LAB HEMETOLOGY METHOD 05/23/2024 1:19 PM [facility] MPV 11.7(H) 7.0 - 11.0 FL LAB HEMETOLOGY METHOD 05/23/2024 1:19 PM [facility] NRBC 0.0 <1.0 % LAB HEMETOLOGY METHOD 05/23/2024 1:19 PM [facility] NRBC Absolute 0.00 <0.10 K/mcL LAB HEMETOLOGY METHOD 05/23/2024 1:19 PM [facility] Neutrophils Relative 63.2 % LAB HEMETOLOGY METHOD 05/23/2024 1:19 PM [facility] Lymphocytes Relative 27.0 % LAB HEMETOLOGY METHOD 05/23/2024 1:19 PM [facility] Monocytes Relative 7.2 % LAB HEMETOLOGY METHOD 05/23/2024 1:19 PM [facility] Eosinophils Relative 2.0 % LAB HEMETOLOGY METHOD 05/23/2024 1:19 PM [facility] Basophils Relative 0.3 % LAB HEMETOLOGY METHOD 05/23/2024 1:19 PM [facility] Immature Granulocytes Relative 0.3 % LAB HEMETOLOGY METHOD 05/23/2024 1:19 PM [facility] Neutrophils Absolute 6.05 1.50 - 7.00 K/mcL LAB HEMETOLOGY METHOD 05/23/2024 1:19 PM [facility] Lymphocytes Absolute 2.58 1.00 - 5.00 K/mcL LAB HEMETOLOGY METHOD 05/23/2024 1:19 PM [facility] Monocytes Absolute 0.69 0.20 - 1.00 K/mcL LAB HEMETOLOGY METHOD 05/23/2024 1:19 PM [facility] Eosinophils Absolute 0.19 0.00 - 0.50 K/mcL LAB HEMETOLOGY METHOD 05/23/2024 1:19 PM [facility] Basophils Absolute 0.03 0.00 - 0.20 K/mcL LAB HEMETOLOGY METHOD 05/23/2024 1:19 PM [facility] Immature Granulocytes Absolute 0.03 0.00 - 0.03 K/mcL LAB HEMETOLOGY METHOD 05/23/2024 1:19 PM [facility] Blood Venous blood specimen / Unknown 05/23/2024 8:16 AM EDT 05/23/2024 12:40 PM EDT Deniz SOTO LAB BLOOD ORDERABLES Final Result [facility] [address] [place] [address], documented in this encounter Visit Diagnoses Diagnosis Testicular hypofunction Other testicular hypofunction documented in this encounter
== END 2024-08-21 11:56 | disposition home or self-care (01) ==
LOC: HO.ENCR 11:18
PROVIDERS: PCP Internal Medicine; Visit Provider Nurse Practitioner Adult Health
DX: E11.65 Type 2 diabetes mellitus with hyperglycemia (principal)

== ENCOUNTER → 2024-08-21 11:17 | Outpatient (BNVA) | payer OTHER, SELFPAY | PROVIDERS: PCP Internal Medicine; Visit Provider Nurse Practitioner Adult Health | DX: E11.65 Type 2 diabetes mellitus with hyperglycemia (principal) | CPT/HCPCS: 82947; 83036; 99212 ==

== ENCOUNTER 2024-11-20 12:56 | Outpatient (AMB) | payer OTHER, SELFPAY ==
--- NOTE | 2024-11-20 13:06 | A.OFFVIS_ITS ---
Vital Signs 3 11/20/24 13:08 Height 5 ft 11 in Weight 213 lb 2.992 oz BMI 29.7 BP 106/68 Blood Pressure Location Rt brachial Position Sitting Pulse 86 Pulse Source Pulse Oximeter Pulse Oximetry (%) 98 Oxygen Delivery Method Room Air Intake Visit Reasons: T2DM Intake Note: Patient presents today for a follow-up on Type 2 Diabetes Mellitus: Patient last seen by Poornima Redding NP Last Diabetic eye exam was on: 03/2024 Last Podiatry exam was on: Does not see a Supervisor Webbing Most recent HbA1c: 5.6% 11/20/2024 Random Glucose- 200 mg/dL, Today Food And Nutrition Services Assistant Required: No Accompanied by: Self / Same As Patient Allergies No Known Allergies Allergy (Verified 11/20/24 13:18) HPI Comments Details: 64 year old male with type 2 diabetes presents for management of diabetes. HgbA1C 05/30/24 5.2%, previous 5.6% 02/27/24. Patient has anemia which may render A1c in accurate. Fructosamine 02/27/24 296 which is equivalent to an A1c is 7.3 %. The patient follows a pattern of eating one meal a day, typically in the evening, with occasional light meals or snacks earlier in the day depending on hunger levels. Reports blood sugar levels have been generally good since the last visit, though not as consistent as preferred due to lifestyle factors, such as needing to care for grandchildren, which sometimes disrupts meal times. He denies recent changes to insulin pump settings. Diabetes medications: Mounjaro 7.5 mg weekly, Admelog via omnipod pump for approx 5 years. Lantus backup 20 units Previous meds: Omnipod Dash Micro and macrovascular complications: + nephropathy , CKD 3, + neuropathy Has neuropathy: Symptoms reported: + numbness, tingling, in lower extremities better since changed to lyrica Has nephropathy Sees nephrology regularly on pedro-i sees neph 1-2 times per year 02/27/2024 eGFR 49 microalbumin 77 Hypoglycemia: rare Taken off statin years ago liver related, on fenofibrate and Zetia. [employer] - CDE education: Has been seen in the past Supervisor Webbing: denies Ophthalmology evaluation: Over 1 year ago, has appt scheduled for Regular exercise. 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 NAD. Neck/Thyroid: Thyroid not palpable, no nodules. Eyes: No conjunctival injection, not lid lag or proptosis CV: RRR, no murmur. No edema. Resp:Lungs clear to auscultation bilaterally Abdomen: Soft, nontender. nondistended Extremities/Neuro: No weakness or tremor of outstretched hands Laboratory Tests 06/12/23 02/27/24 05/30/24 06:17 16:50 08:24 Sodium 142 143 Potassium 3.4 4.2 D Creatinine 1.72 H 1.45 H Estimated GFR 49 Hgb A1c (Clinic) Albumin 4.3 Triglycerides 151 H Cholesterol 132 LDL Cholesterol, Calc 68 HDL Cholesterol 34 L 11/20/24 13:20 Sodium Potassium Creatinine Estimated GFR Hgb A1c (Clinic) 5.6 Albumin Triglycerides Cholesterol LDL Cholesterol, Calc HDL Cholesterol CGM data: Interpretation: Overall well diabetes control except for some episode of hypoglycemia in the morning. [facility] Medical History Obesity (BMI 30-39.9) Hypertension Dyslipidemia Hypercalcemia Non-toxic multinodular goiter longterm (current) use of insulin CKD (chronic kidney disease) stage 3, GFR 30-59 ml/min Diabetes type 2, uncontrolled Surgical History History of appendectomy Hx of colonoscopy History of reversal of ileostomy Family History Father Diabetes Hypertension Mother Diabetes Hypertension Social History Household Members: Spouse Household Members Other:: Alcohol intake: never Patient Tobacco Use Status: Never used Tobacco Physical Exam Vital Signs: Last Vital Signs Pulse 86 11/20/24 13:08 BP 106/68 11/20/24 13:08 Pulse Ox 98 11/20/24 13:08 Oxygen Delivery Method Room Air 11/20/24 13:08 BMI result Body Mass Index 29.7 Office Procedures Glucose Monitoring Details Details: See [facility] [id number] - Glucose Monitoring, continuous Procedure code (CPT) selection complete Results AMB Hemoglobin A1c 2 AMB Hemoglobin A1c 5.6 % Last Edit by NITESH Baron on 11/20/24 13:25 Results Reviewed Results Reviewed: Laboratory Last Values Glucose (Clinic) 200 mg/dL (60-115) H 11/20/24 13:13 Hgb A1c (Clinic) 5.6 % (4.0-6.0) 11/20/24 13:20 Assessment & Plan Assessment & Plan (1) Diabetes type 2, uncontrolled: Code(s): E11.65 - Type 2 diabetes mellitus with hyperglycemia Category: Medical Qualifiers: Glycemic state: with hyperglycemia Qualified Code(s): E11.65 - Type 2 diabetes mellitus with hyperglycemia Plan 64-year-old type 2 diabetic with a stable retinopathy, stable nephropathy and neuropathy on an insulin pump with the reasonably well glycemic control. A1c may not be a valid indicator due to some anemia/CKD. His glucose management indicator on his CGM is 7.0%, than average glucose of 152 which also equates to about A1c 7.2%, which indicates a reasonably good diabetes control. Plan - Continue current use of the Omnipod 5 insulin pump with no changes - Maintain current routine of medication adherence, balanced diet, and regular exercise (>=50 min/week). - Discussed importance of preventing hypoglycemia; treat BG <70 mg/dL with 15 g carbs, recheck in 15 minutes. - Monitor hyperglycemia; if BG >250 mg/dL persistently, increase hydration and frequency of checks, call provider if symptoms worsen. - Maintain annual appointments for dilated eye exam and urine microalbumin screening. Orders: Orders 2 AMB Glucose Monitoring Today E11.65 - Type 2 diabetes mellitus with hyperglycemia Lipid Panel Today E11.65 - Type 2 diabetes mellitus with hyperglycemia AMB Hemoglobin A1c Today E11.65 - Type 2 diabetes mellitus with hyperglycemia Basic Metabolic Panel Today E11.65 - Type 2 diabetes mellitus with hyperglycemia Protein Creatinine Ratio, Ur Today E11.65 - Type 2 diabetes mellitus with hyperglycemia Coding Level of Care Code Est Pt Level 4 (46839) Diagnoses Uncontrolled type 2 diabetes mellitus with hyperglycemia E11.65 Glycemic state: with hyperglycemia CPT Codes Details - CPT: 74781 - Glucose Monitoring, continuous ([id number]) Time Spent (min) 45 Comment Time spent on review of previous records, history, exam/plan and patient education.
[2024-11-20 13:08] VITALS: BP 106/68; PULSE 86; O2SAT 98; BMI 29.7
[2024-11-20 13:19] LABS: Glucose, Whole Blood 200 mg/dL (60-115)
== END 2024-11-20 14:15 | disposition home or self-care (01) ==
LOC: HO.ENCR 12:56
PROVIDERS: PCP Internal Medicine; Visit Provider Student in an Organized Health Care Education/Training Program
DX: E11.65 Type 2 diabetes mellitus with hyperglycemia (principal)
CPT/HCPCS: 99214

== ENCOUNTER → 2024-11-20 12:56 | Outpatient (BNVA) | payer OTHER, SELFPAY | PROVIDERS: PCP Internal Medicine; Visit Provider Student in an Organized Health Care Education/Training Program | DX: E11.65 Type 2 diabetes mellitus with hyperglycemia (principal); Z79.4 Long term (current) use of insulin; Z79.85 Long-term (current) use of injectable non-insulin antidiabetic drugs | CPT/HCPCS: 82947; 83036; 95250; 99212 ==